=== PATIENT | female | born 1940 | race Caucasian/White ===

== ENCOUNTER 2020-05-07 16:47 | Inpatient (IN) | payer BC ==
[~2020-05-07] VITALS: Ht 160 cm; Wt 69.2 kg
--- NOTE | 2020-05-07 16:55 | Emergency Department Note ---
History of Present Illnes History of Present Illness History of Present Illness This is a 79 year old female presents to the ED for spontaneous onset of non- traumatic R hip pain which radiates down R leg . 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 Onset (how long ago): minute(s) Radiation: Reports extremity Severity: moderate Onset quality: sudden Duration (how long): hour(s) Progression: worsening Chronicity: new Context: Denies trauma/injury Relieving factors: immobilization, rest Exacerbating factors: movement Associated symptoms: Denies denies other symptoms, Denies confusion, Denies chest pain, Denies cough, Denies diaphoresis, Denies fever/chills, Denies headaches, Denies loss of appetite, Denies malaise, Denies nausea/vomiting, Denies rash, Denies seizure, Denies shortness of breath, Denies syncope, Denies weakness, Denies other Treatments prior to arrival: none Past Medical/Family History Physician Review I have reviewed the patient's past medical and family history. Any updates have been documented here. Past Medical History Recent Fever: No Clinical Suspicion of Infectio: No New/Unexplained Change in Ment: No Other Medical History: Multiple Myeloma Breast CA Past Surgical History: None Social History Smoking Cessation: Never Smoker Alcohol Use: None Any Illegal Drug Use: No Review of Systems Review of Systems Constitutional: Reports no symptoms EENTM: Reports no symptoms Cardiovascular: Reports no symptoms Respiratory: Reports no symptoms Gastrointestinal: Reports no symptoms Genitourinary: Reports no symptoms Musculoskeletal: Reports joint pain, Reports muscle pain, Reports muscle stiffness Integumentary: Reports no symptoms Neurological: Reports no symptoms Psychological: Reports no symptoms Endocrine: Reports no symptoms Hematological/Lymphatic: Reports no symptoms Physical Exam Related Data Allergies: Coded Allergies: Sulfa (Sulfonamide Antibiotics) (Verified Allergy, Unknown, HIVES, 05/07/20) cephalexin (Verified Allergy, Unknown, 05/07/20) iodine (Verified Allergy, Unknown, HIVES, 05/07/20) latex (Verified Allergy, Unknown, RASH, 05/07/20) propoxyphene (Verified Allergy, Unknown, HIVES, 05/07/20) sulfamethoxazole (Verified Allergy, Unknown, HIVES, 05/07/20) trimethoprim (Verified Allergy, Unknown, HIVES, 05/07/20) codeine (Verified Adverse Reaction, Unknown, NAUSEA, 05/07/20) hydrocodone (Verified Adverse Reaction, Unknown, NAUSEA/HALLUCINATIONS, 05/07/20) morphine (Verified Adverse Reaction, Unknown, NAUSEA, 05/07/20) promethazine (Verified Adverse Reaction, Unknown, NAUSEA, 05/07/20) Triage Vital Signs Vital Signs Date Time Temp Pulse Resp B/P (MAP) Pulse Ox O2 Delivery O2 Flow Rate FiO2 05/07/20 17:00 99.7 89 18 135/74 100 Room Air 05/07/20 23:25 2.0 Vital signs reviewed: Yes Physical Exam CONSTITUTIONAL Constitutional: Present well-developed, Present well-nourished HENT HENT: Present normocephalic, Present atraumatic, Present oropharynx clear/moist, Present nose normal HENT L/R: Present left ext ear normal, Present right ext ear normal EYES Eyes: Reports PERRL, Reports conjunctivae normal NECK Neck: Present ROM normal PULMONARY Pulmonary: Present effort normal, Present breath sounds normal CARDIOVASCULAR Cardiovascular: Present regular rhythm, Present heart sounds normal, Present capillary refill normal, Present normal rate GASTROINTESTINAL Abdominal: Present soft, Present nontender, Present bowel sounds normal GENITOURINARY Genitourinary: Present exam deferred SKIN Skin: Present warm, Present dry MUSCULOSKELETAL Musculoskeletal: Present tenderness (R hip) NEUROLOGICAL Neurological: Present alert, Present oriented x 3, Present no gross motor or sensory deficits PSYCHOLOGICAL Psychological: Present mood/affect normal, Present judgement normal Results Laboratory Lab results reviewed: Yes Laboratory comments Laboratory Tests Test 05/08/20 00:30 05/07/20 17:38 Creatine Kinase 33 IU/L (29-168) Creatine Kinase MB 0.70 ng/mL (0-5.0) Troponin I 0.032 ng/mL (0-0.300) White Blood Count 11.37 x10e3/uL (4.8-10.8) Red Blood Count 3.17 x10e6/uL (3.6-5.1) Hemoglobin 12.0 g/dL (12.0-16.0) Hematocrit 32.4 % (34.2-44.1) Mean Corpuscular Volume 102.2 fL (81-99) Mean Corpuscular Hemoglobin 37.9 pg (28-32) Mean Corpuscular Hemoglobin Concent 37.0 g/dL (31-35) Red Cell Distribution Width 14.5 % (11.7-14.4) Platelet Count 242 x10e3/uL (140-360) Neutrophils (%) (Auto) 81.4 % (38.7-80.0) Lymphocytes (%) (Auto) 2.7 % (18.0-39.1) Monocytes (%) (Auto) 15.5 % (4.4-11.3) Eosinophils (%) (Auto) 0.0 % (0.0-6.0) Basophils (%) (Auto) 0.1 % (0.0-1.0) Neutrophils # (Auto) 9.3 (2.1-6.9) Lymphocytes # (Auto) 0.3 (1.0-3.2) Monocytes # (Auto) 1.8 (0.2-0.8) Eosinophils # (Auto) 0.0 (0.0-0.4) Basophils # (Auto) 0.0 (0.0-0.1) Absolute Immature Granulocyte (auto 0.03 x10e3/uL (0-0.1) Differential Total Cells Counted 100 Neutrophils % (Manual) 83 % (40-74) Lymphocytes % (Manual) 3 % (19-48) Monocytes % (Manual) 14 % (3.4-9.0) Platelet Estimate Adequate Platelet Morphology Comment Normal Macrocytosis Slight Red Cell Morphology Comment Normal Sodium Level 138 mmol/L (136-145) Potassium Level 3.8 mmol/L (3.5-5.1) Chloride Level 103 mmol/L (98-107) Carbon Dioxide Level 24 mmol/L (22-29) Anion Gap 14.8 mmol/L (8-16) Blood Urea Nitrogen 30 mg/dL (7-26) Creatinine 0.80 mg/dL (0.57-1.11) Estimat Glomerular Filtration Rate > 60 ML/MIN (60-) BUN/Creatinine Ratio 38 (6-25) Glucose Level 127 mg/dL (74-118) Calcium Level 9.4 mg/dL (8.4-10.2) Total Bilirubin 0.3 mg/dL (0.2-1.2) Aspartate Amino Transf (AST/SGOT) 25 IU/L (5-34) Alanine Aminotransferase (ALT/SGPT) 19 IU/L (0-55) Alkaline Phosphatase 50 IU/L (40-150) Total Protein 8.3 g/dL (6.5-8.1) Albumin 3.7 g/dL (3.5-5.0) Globulin 4.6 g/dL (2.3-3.5) Albumin/Globulin Ratio 0.8 (0.8-2.0) Imaging Imaging results reviewed: Yes Impressions [place] [address] Patient Name: HU SOLITARIO MR #: [id number] : 1940 Age/Sex: 79/F Req #: [id number] Adm Physician: Ordered by: RILEY SAUCEDO DO Report #: [id number] Location: ER Room/Bed: Procedure: [id number] CT/CT HIP RIGHT WO Exam Date: 05/07/20 Exam Time: 1820 REPORT STATUS: Signed EXAM: CT of the site without contrast INDICATION: Status post fall with right hip pain. COMPARISON: Same day plain radiographs.. TECHNIQUE: Multidetector CT scanning of the site was performed. Coronal and sagittal multiplanar reformations were obtained. RADIATION DOSE: Total DLP: 210 mGy*cm Estimated effective dose: (DLP x 0.014 x size factor) mSv CTDIvol has been reviewed. It is below the limits set by the Radiation Protocol Committee (RPC). Dose modulation, iterative reconstruction, and/or weight based adjustment of the mA/kV was utilized to reduce the radiation dose to as low as reasonably achievable. FINDINGS: Bones/joints: No acute fracture or dislocation. There are multiple punctate lytic lesions throughout the bones. There are mild degenerative changes of the right hip. Soft Tissues: There are punctate osseous fragments with mild edema of the hamstring muscles. Others: There is right inguinal hernia which contains a short segment of small bowel. No evidence of strangulation. The remainder of the imaged pelvic organs are unremarkable. IMPRESSION: 1. No acute fracture or dislocation. 2. Multiple punctate lytic lesions throughout the bones. Differential diagnoses include multiple myeloma, lymphoma versus metastatic disease. Correlate with clinical history of malignancy and/or complete workup. 3. Punctate osseous fragment with mild edema of the hamstring muscles. These findings likely represent hamstring muscle strain with probable partial-thickness tear. 4. Right inguinal hernia containing short segment of small bowel. No evidence of bowel strangulation or obstruction. Signed by: Anthony Corona MD on 05/07/2020 7:10 PM Dictated By: ANTHONY CORONA MD 09 Transcribed By: KRISSY on 05/07/201909 COPY TO: RILEY SAUCEDO DO~ [place] [address] Patient Name: HU SOLITARIO MR #: [id number] : 1940 Age/Sex: 79/F Req #: [id number] Adm Physician: EDDIE WILLIS MD Ordered by: RILEY SAUCEDO DO Report #: [id number] Location: MED/SURG3 Room/Bed: [facility] Procedure: [id number] CT/CT LUMBAR SPINE WO Exam Date: 05/07/20 Exam Time: 1929 REPORT STATUS: Signed History: Trauma, fall, pain, history of myeloma. Comparison studies: Lumbar spine x-ray 05/07/2020 Technique: Axial images were obtained through the lumbar spine. Coronal and sagittal images reconstructed from the axial data. Dose modulation, iterative reconstruction, and/or weight based adjustment of the mA/kV was utilized to reduce the radiation dose to as low as reasonably achievable. Dose modulation, iterative reconstruction, and/or weight based adjustment of the mA/kV was utilized to reduce the radiation dose to as low as reasonably achievable. Intravenous contrast: None Findings: Number of non-rib bearing vertebral bodies: 5 Alignment: Mild thoracolumbar levocurvature with hyperlordotic lumbar curvature and Grade 2 anterolisthesis of L4 and L5 by approximately 12 mm. Soft tissues and dorsal paraspinal musculature: Postsurgical changes in the lower lumbar soft tissues with moderate symmetric atrophic changes in the dorsal paraspinal musculature. Vertebrae: Demineralized bones with multiple scattered lucent foci consistent with patient's history of multiple myeloma. Postsurgical changes at L4-L5 written there is prior discectomy, posterior instrumented fusion with rods fixated via bilateral pedicle screws without hardware failure or hardware loosening, prior laminectomies and right facetectomy. Fracture along the superior L3 endplate with approximately 25% height loss without retropulsion is age-indeterminate. Chronic-appearing fracture of the superior L2 endplate with approximately 50% height loss centrally without retropulsion. Degenerative changes: T11-T12: Severely degenerated disc. T12-L1: Severely degenerated disc. Minimal retrolisthesis of T12 on L1 with associated disc osteophyte complex and facet arthrosis contribute to moderate bilateral foraminal stenosis (right greater than left.) No significant canal stenosis. L1-L2: Disc osteophyte complex and facet arthrosis result in moderate right and mild left foraminal stenosis. No significant canal stenosis. L2-L3: Disc bulge, thickened ligamentum flavum and facet arthrosis without significant canal or foraminal stenosis. L3-L4: Disc bulge and facet arthrosis result in mild bilateral foraminal stenosis. No gross significant canal stenosis. L4-L5: Changes of prior discectomy with obliterated disc space. Canal has been surgically decompressed. Anterolisthesis of L4 and L5 with associated hypertrophic changes at the facets result in mild left foraminal stenosis. Right foramen has been surgically decompressed. L5-S1: Moderately degenerated disc with vacuum phenomenon. Disc osteophyte complex asymmetric to the left and facet arthrosis result in moderate left foraminal stenosis. No significant canal or right foraminal stenosis. Additional findings: Scattered colonic diverticulosis. Partially imaged right lumbar hernia. IMPRESSION: 1. Demineralized bones with scattered lytic foci consistent with history of myeloma. 2. Age-indeterminate superior L3 endplate fracture, approximately 25% height loss, no retropulsion. 3. Chronic-appearing superior L2 superior endplate fracture. 4. Grade 2 anterolisthesis of L4 on L5 with postsurgical changes at L4-L5 as described. 5. Multilevel degenerative changes as described. Lumbar spine MRI may better evaluate fracture acuity as warranted. Findings discussed with Dr. Saucedo at 9:05 PM on 05/07/2020. Signed by: Dr. Ha Shah M.D. on 05/07/2020 9:12 PM Dictated By: HA SHAH MD 11 Transcribed By: KRISSY on 05/07/202111 COPY TO: RILEY SAUCEDO DO~ Assessment & Plan Medical Decision Making MDM Diff Dx : sciatica, pathologic fx, hip contusion, hip sprain Assessment & Plan Final Impression: (1) Hip pain, right Depart Disposition: ADMITTED Home Meds Reported Medications [Vitamin E ] 10,000 UNITS No Conflict Check, PO DAILY 05/07/20 Cholecalciferol (Vitamin D3) (VITAMIN D3) 1 Gm Powder, 2 GM 05/07/20 Ascorbic Acid (VITAMIN C) 1,000 Mg Tablet 05/07/20 Vitamin A (VITAMIN A) 8,000 Unit Capsule 05/07/20 Fluticasone Propionate (FLUTICASONE PROPIONATE) 16 Gm [place].susp, INH BID PRN for ALLERGY 05/07/20 Zolpidem Tartrate (AMBIEN) 5 Mg Tablet, 2.5 MG PO HS PRN for INSOMNIA, #30 TAB 05/07/20 Amlodipine Besylate (NORVASC) 5 Mg Tab, 5 MG PO DAILY, #30 TAB 05/07/20 Lisinopril (LISINOPRIL) 5 Mg Tablet, 5 MG PO DAILY, #30 TAB 05/07/20 Dexamethasone (DEXAMETHASONE) 4 Mg Tablet, 40 MG PO Q WEEK, TAB 4mg x10 tabs every Saturday05/07/20 Montelukast Sodium (MONTELUKAST SODIUM) 10 Mg Tablet, 10 MG PO DAILY, #30 TAB 05/07/20 Guaifenesin (MUCINEX) 600 Mg Tablet.er, 400 MG PO BID, TAB 05/07/20 Acyclovir (ACYCLOVIR) 200 Mg Capsule, 200 MG PO BID, #30 CAP 05/07/20 Discontinued Reported Medications Teriparatide Inj (FORTEO) 2.4 Ml Syr, 20 MEQ PO DAILY 05/07/20 Ferrous Sulfate (FERROUS SULFATE) 325 Mg Tablet, 325 MG PO DAILY 05/07/20 Loratadine/Pseudoephedrine (CLARITIN-D 24 HOUR TABLET) 1 Each Tab.er.24h, 1 EACH PO DAILY, #30 TAB 05/07/20 RILEY SAUCEDO DO May 07, 2020 16:55
[2020-05-07] MEDS ORDERED: HYDROCODONE/APAP 10MG-325MG TAB PO STA (16:57)
[2020-05-07] MEDS ORDERED: VITAMIN D31 GM (17:19)
[2020-05-07] MEDS ORDERED: VITAMIN A8000 UNIT (17:19)
[2020-05-07] MEDS ORDERED: VITAMIN C1000 MG (17:19)
[2020-05-07] MEDS ORDERED: LISINOPRIL5 MG PO (17:19)
[2020-05-07] MEDS ORDERED: AMBIEN5 MG PO (17:19)
[2020-05-07] MEDS ORDERED: MONTELUKAST SOD10 MG PO (17:19)
[2020-05-07] MEDS ORDERED: MUCINEX600 MG PO (17:19)
[2020-05-07] MEDS ORDERED: VITAMIN E PO (17:19)
[2020-05-07] MEDS ORDERED: CLARITIN-D 241 EACH PO (17:19)
[2020-05-07] MEDS ORDERED: FORTEO2.4 ML PO (17:19)
[2020-05-07] MEDS ORDERED: NORVASC5 MG PO (17:19)
[2020-05-07] MEDS ORDERED: ACYCLOVIR200 MG PO (17:19)
[2020-05-07] MEDS ORDERED: FERROUS SULFAT325 MG PO (17:19)
[2020-05-07] MEDS ORDERED: FLUTICASONE PRO16 GM INH (17:19)
[2020-05-07] MEDS ORDERED: DEXAMETHASONE4 MG PO (17:19)
--- OUTSIDE RECORDS SUMMARY | 2020-05-07 17:22 | XMS REPORT | Clinical Summary ---
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 Name Role Phone Viviane Billings MD PCP Allergies Comments Active Allergy Reactions Severity Noted Date Paper tape ok Adhesive Rash Low 04/13/2019 Cephalexin Rash Low 10/22/2016 hallucination Codeine Other (See 10/22/2016 Comments) Other reaction(s): Hallucinations Hydrocodone-Acetaminophen Nausea Only 10/22/2016 Iodine Rash Low 10/22/2016 Latex Rash Low 04/13/2019 Sick and hallucinations Morphine Other (See 10/22/2016 Comments) [id number] Rash Low 01/2017 h Oil Povidone-Iodine Rash Low 10/22/2016 Promethazine-Dm Nausea And 10/22/2016 Vomiting Unknown Propoxyphene-Acetaminophe Other (See 10/22/2016 n Comments) Lenalidomide Rash Low 04/13/2019 Sulfamethoxazole-Trimetho Hives 10/22/2016 prim Other reaction(s): Other (See Comments) Headaches Sulfated 10/22/2016 Mucopolysaccharides Medications End Date Status Medication Sig Dispensed Refills Start Date Active lisinopril Take 5 mg by 0 (PRINIVIL,ZESTRIL) 5 MG mouth daily. tablet Active amLODIPine (NORVASC) 5 MG Take 5 mg by 0 tablet mouth daily. Active zolpidem (AMBIEN) 2.5 mg Take 2.5 mg 0 half tablet by mouth every night as needed for Insomnia. Active dextromethorphan-guaifene Take 1 tablet 0 sin (MUCINEX DM) 30-600 by mouth as mg per 12 hr tablet needed . Active ferrous sulfate 325 (65 Take 325 mg 0 FE) MG tablet by mouth 2 (two) times daily. Active vitamin A 75842 UNIT Take 10,000 0 capsule Units by mouth daily. Active b complex vitamins tablet Take 1-2 0 tablets by mouth daily. Active ascorbic acid, vitamin C, Take 1,000 mg 0 (VITAMIN C) 1000 MG by mouth 2 tablet (two) times daily. Active vitamin E 400 UNIT Take 400-800 0 capsule Units by mouth daily. Active alpha lipoic acid 300 mg Take 1 0 Cap capsule by mouth daily. Active bromelains 500 mg Tab Take 1 tablet 0 by mouth 2 (two) times daily. Active chromium picolinate 400 Take 800 mcg 0 mcg Tab by mouth 2 (two) times daily. Active echinacea 500 mg Cap Take 1 0 capsule by mouth as needed. Active folic acid (FOLVITE) 800 Take 800 mcg 0 MCG tablet by mouth 2 (two) times daily. Active garlic 1,000 mg Cap Take 1 0 capsule by mouth 2 (two) times daily. Active coenzyme Q10 100 mg Take 100 mg 0 capsule by mouth 2 (two) times daily. Active FLAXSEED, LINSEED, (FLAX Take 2,000 mg 0 SEED OIL) 1,000 mg Cap by mouth daily. Active magnesium gluconate Take 500 mg 0 (MAGONATE) 27.5 mg (500 by mouth 2 mg) tablet (two) times daily. Active milk thistle 200 mg Cap Take 1 0 capsule by mouth daily. Active ANTIOX Take 1 tablet 0 #11/OM3/DHA/EPA/LUT/JANENE by mouth (OCUVITE ADULT 50+ ORAL) daily. Active olive leaf extract 250 mg Take 1 0 Cap capsule by mouth as needed. Active GLUCOSAMINE HCL/CHONDR SESAY Take 100 mg 0 A NA (OSTEO BI-FLEX ORAL) by mouth daily. Active L. acidophilus-L. Take 1 0 rhamnosus (PROBIOTIC) 15 capsule by billion cell Cap mouth daily. Active royal jelly 500 mg Cap Take 1,000 mg 0 by mouth 2 (two) times daily. Active selenium 200 mcg Cap Take 1 0 capsule by mouth daily. Active TURMERIC ROOT EXTRACT Take 538 mg 0 ORAL by mouth daily. Active zinc gluconate 50 mg Take 50 mg by 0 tablet mouth daily. Active azelastine (ASTELIN) 137 1 spray by 0 mcg (0.1 %) nasal spray Nasal route daily Use in each nostril as directed . Active dexAMETHasone (DECADRON) Take 40 mg by 0 4 MG tablet mouth once a week. Active montelukast (SINGULAIR) Take 10 mg by 0 10 mg tablet mouth nightly. Active BIOTIN ORAL Take by 0 mouth. Active UNKNOWN cbd oil dialy 0 . Active Problems Problem Noted Date Compression fracture of thoracic vertebra 11/09/2016 Social History Date Tobacco Use Types Packs/Day Years Used Never Smoker Smokeless Tobacco: Never Used Drinks/Week oz/Week Comments Alcohol Use No Sex Assigned at Date Recorded Not on file Last Filed Vital Signs Not on file Plan of Treatment Health Maintenance Due Date Last Done Comments INFLUENZA VACCINE (#1) 2020 03/11/2017, 03/06/2016, 03/31/2015, Additional history exists PNEUMOCOCCAL 65+ YRS Completed 01/26/2016, 06/30/2014, 03/30/2009 Implants Device Identifier Shelf Expiration Date Model / Serial / L ot Implanted Type Area Manufactur er 01/14/2019 C01A / / [id number] Cement Bone [employer] Hv-R C01a - Cement/Yash N/A: Spine [employer]: [id number] ler/Adhesi Thoracic SPINAL Implanted: Qty: 1 on 11/09/2016 by pepe Zane PrepAmarjit Rajan MD at [facility] 04/26/2018 C01B / / [id number] Cement Ktmx Kyphx Hv-R C01b - Cement/Yash N/A: Spine [employer]: [id number] ler/Adhesi Thoracic SPINAL Implanted: Qty: 1 on 11/09/2016 by pepe Wannyi Amarjit Valdez MD at [facility] Results Not on fileafter 05/07/2019 Insurance Type Payer Benefit Subscriber ID Effective Phone Address Plan / Dates Group PPO BLUE CROSS/BLUE SHIELD BCBS OS [id number] 2016-P [address]O/EP resent [id number] [place] [address] [id number]
--- OUTSIDE RECORDS SUMMARY | 2020-05-07 17:22 | XMS REPORT | Continuity of Care Document ---
Author Author [facility] t Organization [facility] Address 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, Elizabeth Motley Attphys [phone] HERB, IBAN Attphys Unavailable MIKAYLA MANCILLA Attphys Unavailable MIKAYLA MANCILLA Admphys Unavailable Problems Condition Name Condition Details Condition Category Status Onset Date Resolution Date Last Treatment Date Treating Clinician Comments Source Compression fracture of thoracic vertebra Compression fracture of thoracic vertebra Disease Active 2016-11-09 00:00:00 [facility] Allergies, Adverse Reactions, Alerts Allergy Name Allergy Type Status Severity Reaction(s) Onset Date Inacti ve Date Treating Clinician Comments Source Adhesive Drug Allergy Active Rash 2019-04-13 00:00:00 Paper tape ok [facility] Latex Drug Allergy Active Rash 2019-04-13 00:00:00 [facility] Lenalidomide Drug Allergy Active Rash 2019-04-13 00:00:00 [facility] Cephalexin Propensity to adverse reactions Active Rash 10-22 00:00:00 [facility] Codeine Propensity to adverse reactions Active Othe r (See Comments) 2016-10-22 00:00:00 hallucination [facility] Hydrocodone-Acetaminophen Propensity to adverse reactions Active Nausea Only 2016-10-22 00:00:00 Other reaction(s): Hallucina tions [facility] Iodine Propensity to adverse reactions Active Rash 2016-10-22 00 :00:00 [facility] Morphine Propensity to adverse reactions Active Othe r (See Comments) 2016-10-22 00:00:00 Sick and hallucinations [facility] Pktmt8-[id number]-Fish Oil Propensity to adverse reactions Active Rash 2016-10-22 00:00:00 [facility] Povidone-Iodine Propensity to adverse reactions Active Rash 2016-10-22 00:00:00 [facility] Promethazine-Dm Propensity to adverse reactions Active Nausea And Vomiting 2016-10-22 00:00:00 [facility] Propoxyphene-Acetaminophen Propensity to adverse reactions Active Other (See Comments) 2016-10-22 00:00:00 Unknown [facility] Sulfamethoxazole-Trimethoprim Propensity to adverse reactions Active Hives 2016-10-22 00:00:00 [facility] Sulfated Mucopolysaccharides Propensity to adverse reactions Active 2016-10-22 00:00:00 Other reaction(s): Other (Se e Comments)Headaches [facility] Social History Social Habit Start Date Stop Date Quantity Comments Source Sex Assigned At [facility] Tobacco use and exposure 2019-04-17 00:00:00 2019-04-17 00:00:00 Maira hogan used [facility] Alcohol intake 2019-04-17 00:00:00 2019-04-17 00:00:00 Current non-drinker of alcohol (finding) [facility] Smoking Status Start Date Stop Date Source Never smoker [facility] Medications Ordered Medication Name Filled Medication Name Start Date Stop Da te Current Medication? Ordering Clinician Indication Dosage Frequency Signature (SIG) Comments Components Source lisinopril (PRINIVIL,ZESTRIL) 5 MG tablet 2019-04-17 12:05:10 Yes 5mg QD Take 5 mg by mouth daily. [facility] amLODIPine (NORVASC) 5 MG tablet 2019-04-17 12:05:10 Yes 5mg QD Take 5 mg by mouth daily. [facility] zolpidem (AMBIEN) 2.5 mg half tablet 2019-04-17 12:05:10 Ye s 2.5mg Take 2.5 mg by mouth every night as needed for Insomnia. [facility] dextromethorphan-guaifenesin (MUCINEX DM) 30-600 mg per 12 h r tablet 2019-04-17 12:05:10 Yes 1{tbl} Take 1 tablet by m outh as needed . [facility] ferrous sulfate 325 (65 FE) MG tablet 2019-04-17 12:05:10 Yes 325mg Q.5D Take 325 mg by mouth 2 (two) times daily. [facility] vitamin A 33590 UNIT capsule 2019-04-17 12:05:10 Yes 25618R QD Take 10,000 Units by mouth daily. [facility] b complex vitamins tablet 2019-04-17 12:05:10 Yes 1{tbl} QD Take 1-2 tablets by mouth daily. [facility] ascorbic acid, vitamin C, (VITAMIN C) 1000 MG tablet 2 12:05:10 Yes 1000mg Q.5D Take 1,000 mg by mouth 2 (two) times diana ly. [facility] vitamin E 400 UNIT capsule 2019-04-17 12:05:10 Yes 400U QD Take 400-800 Units by mouth daily. [facility] alpha lipoic acid 300 mg Cap 2019-04-17 12:05:10 Yes 1{capsule} QD Take 1 capsule by mouth daily. [facility] bromelains 500 mg Tab 2019-04-17 12:05:10 Yes 1{tbl} Q.5D Take 1 tablet by mouth 2 (two) times daily. [facility] chromium picolinate 400 mcg Tab 2019-04-17 12:05:10 Yes 800ug Q.5D Take 800 mcg by mouth 2 (two) times daily. I [facility] echinacea 500 mg Cap 2019-04-17 12:05:10 Yes 1{capsule} Take 1 capsule by mouth as needed. [facility] folic acid (FOLVITE) 800 MCG tablet 2019-04-17 12:05:10 Yes 800ug Q.5D Take 800 mcg by mouth 2 (two) times daily. [facility] garlic 1,000 mg Cap 2019-04-17 12:05:10 Yes 1{capsule} Q.5D Take 1 capsule by mouth 2 (two) times daily. I [facility] coenzyme Q10 100 mg capsule 2019-04-17 12:05:10 Yes 100mg Q.5D Take 100 mg by mouth 2 (two) times daily. [facility] FLAXSEED, LINSEED, (FLAX SEED OIL) 1,000 mg Cap 2019-04-17 12:05 :10 Yes 2000mg QD Take 2,000 mg by mouth daily. [facility] magnesium gluconate (MAGONATE) 27.5 mg (500 mg) tablet 2019-04-17 12:05:10 Yes 500mg Q.5D Take 500 mg by mouth 2 (two) times daily . [facility] milk thistle 200 mg Cap 2019-04-17 12:05:10 Yes 1{capsule} QD Take 1 capsule by mouth daily. [facility] ANTIOX #11/OM3/DHA/EPA/LUT/JANENE (OCUVITE ADULT 50+ ORAL) 2019-04-17 12:05:10 Yes 1{tbl} QD Take 1 tablet by mouth daily. [facility] olive leaf extract 250 mg Cap 2019-04-17 12:05:10 Yes 1{capsule} Take 1 capsule by mouth as needed. [facility] GLUCOSAMINE HCL/CHONDR SESAY A NA (OSTEO BI-FLEX ORAL) 2018-06 12:05:10 Yes 100mg QD Take 100 mg by mouth daily. [facility] L. acidophilus-L. rhamnosus (PROBIOTIC) 15 billion cell Cap 2019-04-17 12:05:10 Yes 1{capsule} QD Take 1 capsule by mouth d aily. [facility] royal jelly 500 mg Cap 2019-04-17 12:05:10 Yes 1000mg Q.5D Take 1,000 mg by mouth 2 (two) times daily. [facility] selenium 200 mcg Cap 2019-04-17 12:05:10 Yes 1{capsule} QD Take 1 capsule by mouth daily. [facility] TURMERIC ROOT EXTRACT ORAL 2019-04-17 12:05:10 Yes 538mg QD Take 538 mg by mouth daily. [facility] zinc gluconate 50 mg tablet 2019-04-17 12:05:10 Yes 50mg QD Take 50 mg by mouth daily. [facility] azelastine (ASTELIN) 137 mcg (0.1 %) nasal spray 2019-04-17 12:05:10 Yes 1{spray} QD 1 spray by Nasal route daily Use in each nostri l as directed . [facility] dexAMETHasone (DECADRON) 4 MG tablet 2019-04-17 12:05:10 Ye s 40mg Q7D Take 40 mg by mouth once a week. [facility] montelukast (SINGULAIR) 10 mg tablet 2019-04-17 12:05:10 Ye s 10mg QD Take 10 mg by mouth nightly. [facility] BIOTIN ORAL 2019-04-17 12:05:10 Yes Take by mouth. [facility] UNKNOWN 2019-04-17 12:05:10 Yes cbd oil dial y . [facility] Procedures This patient has no known procedures. Plan of Care Planned Activity Planned Date Details Comments Source Future Scheduled Test 2020-02-16 00:00:00 INFLUENZA VACCINE (#1) [code = INFLUENZA VACCINE (#1)] [facility] Encounters Start Date/Time End Date/Time Encounter Type Admission Type Attendi [facility] Care Department Encounter ID Source 2020-04-28 09:32:34 2020-04-28 11:22:25 Office Visit Osvaldo Mancilla [facility] [place] [id number] 2020-04-22 13:27:19 2020-04-22 14:46:21 Office Visit Osvaldo Mancilla [facility] [place] [id number] 2020-04-12 14:36:12 2020-04-12 17:51:46 Office Visit Viviane Haywood [facility] [id number] 2020-03-22 12:28:02 2020-03-22 15:09:37 Office Visit Osvaldo Mancilla [facility] [place] [id number] 2020-02-23 12:14:31 2020-02-23 13:15:28 Office Visit Osvaldo Mancilla [facility] [place] [id number] 2020-01-26 12:38:56 2020-01-26 13:50:07 Office Visit Osvaldo Mancilla [facility] [place] [id number] 2019-11-18 11:27:21 2019-11-18 11:57:21 Office Visit Tiesha Carlson [facility] [id number] 2019-10-01 12:15:43 2019-10-01 14:28:40 Office Visit Osvaldo Mancilla [facility] [place] [id number] 2019-04-23 13:46:25 2019-04-23 14:46:37 Office Visit Osvaldo Mancilla [facility] [place] [id number] 2019-02-26 12:29:17 2019-02-26 14:03:53 Office Visit Osvaldo Mancilla [facility] [place] [id number] 2019-02-11 08:34:37 2019-02-11 15:13:28 Office Visit Viviane Haywood [facility] [id number] 2019-01-09 09:33:41 2019-01-09 10:03:41 Office Visit Viviane Haywood [facility] [id number] Results Test Description Test Time Test Comments Results Result Comments Source MR, SPINE, LUMBAR, WITHOUT / WITH IV CONTRAST 2018-11-21 11:22:0 0 FINAL REPORT MR, SPINE, LUMBAR, WITHOUT / WITH IV CONTRAST HISTORY: Lumbar disc herniation, multiple myeloma COMPARISON: Lumbar and thoracic spine MRI 09/28/2016 TECHNIQUE:Multiplanar, multisequence MRI of the lumbar spine was performed without and with intravenous contrast. 5.5 mL of Gadavist were administered. Motion and noise artifacts obscure some details. DISCUSSION:Posts urgical changes related to posterior fusion at L4-L5 with laminectomy are present. Associated hardware susceptibility artifacts obscure some details. Number of non-rib bearing lumbar vertebral bodies: 5.Alignment: Normal lordosis. Mild thoracolumbar levoscoliosis is present. Vertebrae: Moderate compression fractures of the T7-T9 vertebral bodies are likely chronic. There is no significant fracture retropulsion. Thoracic kyphosis is accentuated at these levels. There are apparent vertebroplasty changes at T9. Enhancing, T1/T2 hypointensity along the L1 inferior endplate is new. There is associated subtle compression deformity of the L1 inferior endplate. Mild compression deformities of the L2 and L3 vertebral bodies are also likely chronic. There is no significant fracture retropulsion. New mild compression deformity the L4 vertebral body is associated with mild superior endplate STIR hyperintensity. There is no significant fracture retropulsion. Diffuse, heterogeneous, low T2 marrow signal is otherwise grossly unchanged. Conus medullaris: Normal, ends at approximately L1-L2.Cauda equina: No masses or arachnoiditis.Posterior paraspinal muscles: There is paraspinal muscle atrophy at the lumbosacral junction. Posterior incision signal changes are noted.Soft tissues: Left renal parapelvic cysts are present. A few additional small nonenhancing lesions in both kidneys also may be cysts. Multilevel advanced disc degeneration is most prominent at T11-T12, T12-L1, and L4-L5. T10-T11: Mild canal stenosis due to disc bulge and ligamentum flavum thickening. No significant foraminal stenosis. T11-T12: No significant canal or foraminal stenosis. T12-L1: Moderate right foraminal stenosis due to disc bulge and facet arthrosis. No significant canal or left foraminal stenosis. L1-L2: Mild right foraminal stenosis due to disc bulge and facet arthrosis. No significant canal or left foraminal stenosis. L2- L3: Mild bilateral foraminal stenoses due to disc bulge and facet arthrosis. No significant canal stenosis. L3-L4: Mild to moderate bilateral foraminal stenoses due to disc bulge and facet arthrosis. No significant canal stenosis. L4-L5: Fusion/laminectomy level. Grade 2 anterolisthesis of L4 on L5. Moderate canal stenosis, just above the laminectomy level, due to uncovered disc bulge and ligamentum flavum thickening. The neural foramina are obscured by susceptibility artifact. There is at least moderate bilateral foraminal stenoses due to uncovered disc bulge and facet arthrosis. L5-S1: Suspected mild to moderate right and moderate to severe left foraminal stenoses due to disc bulge and facet arthrosis. No significant canal stenosis. IMPRESSION:1.New enhancing, T1/T2 hypointensity along the L1 inferior endplate could be due to mild acute or subacute inferior endplate compression fracture. There is no significant retropulsion.2.New, mild L4 vertebral compression fracture is age-indeterminate (given local susceptibility artifact). No significant retropulsion.3.Grossly unchanged, underlying diffuse, heterogeneous low T2 marrow signal could be due to red marrow conversion or other diffuse marrow process.4.A few additional mild to moderate chronic thoracic and lumbar vertebral compression fractures without significant retropulsion. 5.Multilevel advanced disc degeneration with fusion/laminectomy changes at L4-L5. Grade 2 anterolisthesis of L4 on L5.6.Moderate degenerative canal stenosis at L4-L5. Multilevel bilateral degenerative foraminal stenoses as described above. Signed: [place], [place] MDReport Verified Date/Time: 11/21/2018 11:22:23 Reading Location: [facility] Reading Room [address] [place] [address] -CREATININE 2018-11-19 15:34:00 Test Item POC-CREATININE (BEDIXON) (test code = 1859) 0.7 mg/dL 0.6-1.3 [address]ED [address] [facility] [address] POC-EGFR (BEAKER) (test code = 1860) 81 mL/min/1.73M2 BONE MARROW [id number] 16:08:00Bone Marrow Pathology Report Case: [id number] Authorizing Provider: Osvaldo Mancilla MD Collected: 10/06/2018 0935 Ordering Location: [facility] Radiology Main Received: 10/06/2018 0919 Pathologist: Filiberto Ivory MD Specimens: A) - Iliac Crest, Right B) - C) - Karyotype is reported to be 46,XX[20].Expanded multiple myeloma FISH panel demonstrates the following results with the following probes:Gains (5,9,15) DETECTEDDup(1q) Not detectedDel(1p) Not detectedDel(13q) Not detectedDel(17p)(TP53) Not detectedIGH rearrangement Not detectedExpanded MDS FISH panel was erroneously performed at the reference laboratory. The results of this study are nevertheless is negative and the results are scanned and attached.Addendum electronically signed by Filiberto Ivory MD on 10/17/2018 at 4:08 PMBONE MARROW ASPIRATE, CLOT, AND DECALCIFIED BIOPSY:WELL DI FFERENTIATED KAPPA RESTRICTED PLASMA CELL NEOPLASM (24% BY MANUAL COUNT). RESIDU AL TRILINEAGE HEMATOPOIESIS IS PRESENT.CYTOGENETIC STUDIES PENDING, AN ADDENDUM WILL FOLLOW.PERIPHERAL BLOOD:MACROCYTIC ANEMIA.NO CIRCULATING PLASMA CELLS. Signing Pathologist Direct Phone Line: [phone] signed by Filiberto Cardoza MD on 10/08/2018 at 1:31 PM 91087; 12601; 32776 x 2; 57476 ; 43840 x2, 88020, 11273 [id number] gammopathy of undetermined significance.Jose Guadalupe ne marrow clot and bone marrow biopsy and one aspirate clotAll parts labelled wi th the patients name, medical record number, and date of :Part A: Received are a number of unstained glass slides (aspirate smears). The slides are stained using the Mccullough-Giemsa method. Part B. Received labeled "marrow" and consists of a 0.8 x 0.6 x 0.5 cm red-brown blood clot. The specimen is filtered and submi tted in toto in cassette B1.Part C. Received also labeled "marrow" and consists of a 1.0 x 0.2 cm red-brown cylindrical core. The specimen is submitted in casse tte C following adequate decalcification. /ewBANNER CARDON CHILDREN'S MEDICAL CENTERE MARROW ASPIRATE:QUALITY:Aspi rate- AdequateTouch imprint- AdequateMARROW DIFFERENTIAL COUNT: Number of cells counted: 5001% Blasts 1% Promyelocytes 18% Myelocytes/Metamyelocytes 26% Bands/ Segmented granulocytes 3% Eosinophils and precursors 1% Basophils and precursors 14% Erythroid precursors 9% Lymphocytes 3% Pksovzoqr61% Plasma cellsBlasts: Not increased Erythropoiesis: Present with complete maturationMyelopoiesis: pr esent with complete maturation Megakaryocytes: present and unremarkableOther: mature-appearing plasma cells with occasional binucleate forms Stainable iron is identified on the aspirate smear and appears to be increased. Ring sideroblasts are not identified. BONE MARROW BIOPSY: Biopsy- Adequate. Clot- Inadequate with no marrow material available for evaluation.Mildly hypercellular for age (50-60%). Cellular composition ernesto lar to aspirate smears and touch imprints. Trilineage hematopoiesis is present w ith maturation. Megakaryocytes are slightly decreased and appear unremarkable. A n increased number of predominantly mature-appearing plasma cells are identified . Immunostains performed on the marrow biopsy reveal increased number of monoty pic, [place]-restricted,CD138+,CD56 + plasma cells (20-30%). This population is ne gative for CD20, cyclin D1, and lambda light chain. CD20 highlights scattered B cells, no aggregates. Congo red special stain performed on the core biopsy is n egative.Stainable iron is not identified on the clot section by the Perls iron s pecial stain, however limited marrow is present on the clot section. PERIPHERAL BLOOD:Red cells: Macrocytic anemia. No significant Rouleaux formation. White ce lls: No circulating blasts or plasma cells. Platelets: No signficant morphologi c abnormalities.The interpretation of this case included the use of immunohistoc hemistry or special stains.BLOCK B1- PERLS IRONBLOCK C1: CD138, CD56, KAPPA, HICKS BDA, CD20, CONGO RED, Cyclin U1Gkogrmlwfmkcthjanxhe technical testing was perfor med at [facility], Pathology Laboratory where it was preston szymanskishireen and its performance characteristics were determined. It has not been cleare d or approved by the U.S. Food and Drug Administration. The FDA has determined t hat such clearance or approval is not necessary. The test is used for clinical p urposes. It should not be regarded as investigational or for research. This labo ratory is certified under the Clinical Laboratory Improvement Amendments of 1988 (CLIA-88) as qualified to perform high complexity clinical laboratory testing.[facility], Department of Pathology, [address] [place] [id number], [facility] o f [facility], [address] [place] [address], YVJM CYTOMETRY [id number] 14:05:00* Test Item Value Reference Range Interpretation Comments FLOW CYTOMETRY RESULT POINTER (YONG) (test code = 2758) See Se parate Report FLOW CYTOMETRY AP CASE # (YONG) (test code = 2759) [id number] FLOW [id number] 12:48:00Flow Cytometry Report Case: [id number] Authorizing Provider: Osvaldo Mancilla MD Collected: 10/06/2018 0935 Ordering Location: [facility] Radiology Main Received: 10/06/2018 0906 Pathologist: Filiberto Ivory MD Specimen: Other BONE MARROW, RIGHT ILIAC CREST, FLOW CYTOMETRY:KAPPA RESTRICTED, MONOTYPIC PLASMA CELL POPULATION (3.7% OF TOTAL CELLS)CORRELATION WITH MORPHOLOGIC FINDINGS REQUIRED TO DEFINITIVELY ASSESS THE PERCENTAGE OF PLASMA CELLS. See concurrent bone marrow study ([id number] monoclonal gammopathyBONE MARROW CD8, surface-Palma Sola, CD56, surface-Lambda, CD5, CD19, CD10, CD3, CD20, CD4, CD45, CD14, CD13, CD33, CD117, CD34, cKappa, cLambda, CD38, [id number] Viability: 93.8% Number of Events Acquired: [id number] plasma cell population identified (3.7 of cellularity)POSITIVE: CD45 (dim), CD138, CD38, CD56, [place] light chainNEGATIVE: CD19, CD20, lambda In addition, the following populations are identified: Blasts: the dim CD45+ CD34+ blasts comprise 0.3% of total cells. The majority of these cells express CD13 and CD33 (myeloblasts). Lymphocytes: Bright CD45+ lymphocytes comprise 4.7% of total cells. T cells show a CD4:CD8 ratio of 2.2 and normal expression of the garcia T cell antigens CD3 and CD5. B cells are polytypic with a kappa:lambda ratio of 1.2 and include few CD10+ B cells with the immunophenotypic features of hematogones. Myeloid/monocytic populations: As identified by CD45 and light scatter characteristics, granulocytes comprise the majority of cells analyzed, and monocytes comprise 2.1% of total cells. Plasma cells: 3.7% CD138 positive plasma cells are noted with immunophenotypic features as described above. The remaining events analyzed represent nonviable cells, non-hematolymphoid cells, and debris.These tests were developed and their performance characteristics determined by [facility].They have not been cleared or approved by the U.S. Food and Drug Administration. The FDA has determined that such clearance or approval is not necessary. It should not be regarded as investigational or for research.This laboratory is certified under the Clinical Laboratory Improvement Amendments of 1988 ("CLIA") as qualified to perform high- complexity clinical testing.[facility], Department of Path ology, [address] [place] [address], [facility], [facility], [address] [place] [address], RSKT MARROW PROCESS.2018-10-06 10:15:00* Test Item Value Reference Range Interpretation Comments ANATOMIC CASE# PAYAL) (test code = 2470) [id number] ORDERED BY DOCTOR# (BEAKER) (test code = 2457) Udden PERFORMED BY DOCTOR# (BEAKER) (test code = 2458) Yesika CLOT RECEIVED? (BEAKER) (test code = 2459) Yes BIOPSY RECEIVED? (BEAKER) (test code = 2460) Yes CULTURE RECEIVED? (BEAKER) (test code = 2464) No FLOW RECEIVED? (BEAKER) (test code = 2461) Yes CYTOGENICS? (BEAKER) (test code = 2462) Yes MOLECULAR GENETICS? (BEAKER) (test code = 2463) Yes Good collection by Dr Jarrett.Slides looks great(Floresita)CT, BIOPSY, BONE MARROW 2018-10-06 09:55:00Reason for Exam:->monoclonal gammopathy of unknown significance mgusFINAL REPORT CT guided bone marrow aspiration and biopsy History: monoclonal gammopathy of unknown significance mgus Modality: CT, CT fluoroscopy Anesthesia: 1% lidocaine local Approach: Right dorsal percutaneous Consent: Informed written consent was obtained from the patient. Sedation: Moderate sedation was administered. 1 mg of Versed and 50 mcg of fentanyl IV was used for moderate sedation monitored under my direction. Total intraservice time of sedation was 20 minutes. The patient's vital signs were monitored throughout the procedure and recorded in the patient's medical record by the nurse. Technique: The patient was placed in the prone position in the CT scanner. A safe window to the right iliac bone was localized using CT and CT fluoroscopy. This exam was performed according to our departmental dose optimization program which includes automated exposure control, adjustment of the mA and/or kV according to patient size and/or use of iterative reconstructive technique. After the usual sterile preparation and application of local anesthesia, using a right dorsal percutaneous approach, a 10 cm 12 gauge [place] bone biopsy needle was advanced into the right iliac bone using CT guidance. Approximately 10 cc of marrow aspirates were obtained. Subsequently, a 2 cm core biopsy sample was obtained. The samples were collected by cytopathology for further analysis. Disposition: The patient tolerated the procedure well, without immediate complications. The patient left CT in stable condition. Impression: 1. Technically successful CT guided bone marrow aspi ration and biopsy Signed: Vikas Jarrett MDReport Verified Date/Time: 10/06/2018 09 :55:08 Reading Location: [facility] [id number] Ortho Consult Reading Room [facility] signed by: VIKAS JARRETT M.D. on 10/06/2018 09:55 AM [id number] 07:07:00* Test Item Value Reference Range Interpretation Comments PARTIAL THROMBOPLASTIN TIME (BEAKER) (test code = 760) 29.5 seconds 22.5-36.0 PROTHROMBIN TIME/[id number] 07:06:00* Test Item Value Reference Range Interpretation Comments PROTIME (BEAKER) (test code = 759) 14.0 seconds 11.7-14.7 INR (BEAKER) (test code = 370) 1.1 <=5.9 RECOMMENDED COUMADIN/WARFARIN INR THERAPY RANGESSTANDARD DOSE: 2.0 - 3.0 Inclu sarah: PROPHYLAXIS for venous thrombosis, systemic embolization; TREATMENT for linda ous thrombosis and/or pulmonary embolus.HIGH RISK: Target INR is 2.5-3.5 for pat ients with mechanical heart valves.CBC W/PLT COUNT & AUTO [id number] 07:02:00* Test Item Value Reference Range Interpretation Comments WHITE BLOOD CELL COUNT (BEAKER) (test code = 775) 4.2 K/ L 3.5- 10.5 RED BLOOD CELL COUNT (BEAKER) (test code = 761) 3.58 M/ L 3.93-5 .22 L HEMOGLOBIN (BEAKER) (test code = 410) 12.1 GM/DL 11.2-15.7 HEMATOCRIT (BEAKER) (test code = 411) 36.7 % 34.1-44.9 MEAN CORPUSCULAR VOLUME (BEAKER) (test code = 753) 102.5 fL 79. 4-94.8 H MEAN CORPUSCULAR HEMOGLOBIN (BEAKER) (test code = 751) 33.8 pg 25.6-32.2 H MEAN CORPUSCULAR HEMOGLOBIN CONC (BEAKER) (test code = 752) 33.0 GM/DL 32.2-35.5 RED CELL DISTRIBUTION WIDTH (BEAKER) (test code = 412) 13.6 % 11.7-14.4 PLATELET COUNT (BEAKER) (test code = 756) 189 K/CU MM 150-450 MEAN PLATELET VOLUME (BEAKER) (test code = 754) 9.8 fL 9.4-12 .3 NUCLEATED RED BLOOD CELLS (BEAKER) (test code = 413) 0 /100 WBC 0 -0 NEUTROPHILS RELATIVE PERCENT (BEAKER) (test code = 429) 67 % LYMPHOCYTES RELATIVE PERCENT (BEAKER) (test code = 430) 19 % MONOCYTES RELATIVE PERCENT (BEAKER) (test code = 431) 10 % EOSINOPHILS RELATIVE PERCENT (BEAKER) (test code = 432) 4 % BASOPHILS RELATIVE PERCENT (BEAKER) (test code = 437) 0 % NEUTROPHILS ABSOLUTE COUNT (BEAKER) (test code = 670) 2.84 K/ L 1.56-6.13 LYMPHOCYTES ABSOLUTE COUNT (BEAKER) (test code = 414) 0.81 K/ L 1.18-3.74 L MONOCYTES ABSOLUTE COUNT (BEAKER) (test code = 415) 0.41 K/ L 0. 24-0.36 H EOSINOPHILS ABSOLUTE COUNT (BEAKER) (test code = 416) 0.15 K/ L 0.04-0.36 BASOPHILS ABSOLUTE COUNT (BEAKER) (test code = 417) 0.01 K/ L 0. 01-0.08 IMMATURE GRANULOCYTES-RELATIVE PERCENT (BEAKER) (test code = 2801) 0 % 0-1
[2020-05-07] MEDS ORDERED: HYDROMORPHONE 1MG/1ML INJ IV STA (17:25)
[2020-05-07] MEDS ORDERED: ONDANSETRON HCL INJ 2MG/ML 2ML 2 MG/ML VIAL IV STA (17:25)
[2020-05-07 18:23] LABS: BASOPHILS % 0.1 % (0.0-1.0); HEMATOCRIT 32.4 % (34.2-44.1); LYMPHOCYTES # (AUTO) 0.3 (1.0-3.2); LYMPHOCYTES % 2.7 % (18.0-39.1); MEAN CORPUSCULAR HEMOGLOBIN 37.9 pg (28-32); MEAN CORPUSCULAR VOLUME 102.2 fL (81-99); MONOCYTES # (AUTO) 1.8 (0.2-0.8); MONOCYTES % 15.5 % (4.4-11.3); NEUTROPHILS # (AUTO) 9.3 (2.1-6.9); NEUTROPHILS % 81.4 % (38.7-80.0); PLATELET COUNT 242 x10e3/uL (140-360); RED BLOOD COUNT 3.17 x10e6/uL (3.6-5.1); RED CELL DISTRIBUTION WIDTH 14.5 % (11.7-14.4)
[2020-05-07 18:34] LABS: ALANINE AMINOTRANSFERASE 19 IU/L (0-55); ALBUMIN 3.7 g/dL (3.5-5.0); ALBUMIN/GLOBULIN RATIO 0.8 (0.8-2.0); ALKALINE PHOSPHATASE 50 IU/L (40-150); ANION GAP 14.8 mmol/L (8-16); BLOOD UREA NITROGEN 30 mg/dL (7-26); BUN/CREATININE RATIO 38 (6-25); CALCIUM 9.4 mg/dL (8.4-10.2); CARBON DIOXIDE 24 mmol/L (22-29); CHLORIDE 103 mmol/L (98-107); EST GLOMERULAR FILTRATION RATE > 60 ML/MIN (60-); GLUCOSE 127 mg/dL (74-118); POTASSIUM 3.8 mmol/L (3.5-5.1); SODIUM 138 mmol/L (136-145)
--- NOTE | 2020-05-07 18:54 | Diagnostic Imaging Report ---
Lumbar Spine Radiographs: 3 views HISTORY: Lower back pain status post fall. COMPARISON: None available. DISCUSSION: The bones are diffusely demineralized. Alignment: There is grade 2 anterolisthesis of L4 on L5. Status post L4-L5 posterior spinal fusion with interbody cage device. Vertebral bodies: Compression fractures of T7 and T8 of indeterminate age. There is chronic compression fracture of T9 vertebral body status post vertebroplasty with focal kyphosis. Intervertebral disc spaces: Multilevel degenerative disc disease. Prevertebral soft tissues: Atherosclerotic calcification of the abdominal aorta. Others: The sacroiliac joints are symmetric. Partially imaged abdomen demonstrates normal bowel gas pattern. IMPRESSION: 1. T7 and T8 compression fractures of indeterminate age. Correlate with point tenderness. 2. Chronic compression fracture of T9 vertebral body. 3. Lumbar spondylosis with multilevel degenerative disease. 4. L4-5 posterior spinal fusion with grade 2 anterolisthesis of L4 on L5. Signed by: Ghanshyam Landry MD on 05/07/2020 6:50 PM
--- NOTE | 2020-05-07 18:58 | Diagnostic Imaging Report ---
X-ray AP view of the pelvis. 2 views of the right hip. HISTORY: Pain. COMPARISON: None available. FINDINGS: Bone/joints: No acute fracture or dislocation. There are multiple punctate lytic lesions throughout the bones. Soft tissues: Multiple phlebolith projecting over the pelvis. There are granulomas projecting over the left gluteal soft tissues. Others: The sacroiliac joints are symmetric. No pubic symphyseal widening. IMPRESSION: 1. No acute fracture or dislocation. 2. Multiple punctate lytic lesions throughout the bones. Differential diagnoses include multiple myeloma, lymphoma versus metastatic disease. Correlate with clinical history of malignancy and/or complete workup. Signed by: Ghanshyam Landry MD on 05/07/2020 6:55 PM
[2020-05-07] MEDS ORDERED: ONDANSETRON HCL INJ 2MG/ML 2ML 2 MG/ML VIAL IV PRN ×2 (19:00→20:15)
[2020-05-07] MEDS ORDERED: HYDROMORPHONE 1MG/1ML INJ IV PRN (19:00)
--- NOTE | 2020-05-07 19:13 | Diagnostic Imaging Report ---
EXAM: CT of the site without contrast INDICATION: Status post fall with right hip pain. COMPARISON: Same day plain radiographs.. TECHNIQUE: Multidetector CT scanning of the site was performed. Coronal and sagittal multiplanar reformations were obtained. RADIATION DOSE: Total DLP: 210 mGy*cm Estimated effective dose: (DLP x 0.014 x size factor) mSv CTDIvol has been reviewed. It is below the limits set by the Radiation Protocol Committee (RPC). Dose modulation, iterative reconstruction, and/or weight based adjustment of the mA/kV was utilized to reduce the radiation dose to as low as reasonably achievable. FINDINGS: Bones/joints: No acute fracture or dislocation. There are multiple punctate lytic lesions throughout the bones. There are mild degenerative changes of the right hip. Soft Tissues: There are punctate osseous fragments with mild edema of the hamstring muscles. Others: There is right inguinal hernia which contains a short segment of small bowel. No evidence of strangulation. The remainder of the imaged pelvic organs are unremarkable. IMPRESSION: 1. No acute fracture or dislocation. 2. Multiple punctate lytic lesions throughout the bones. Differential diagnoses include multiple myeloma, lymphoma versus metastatic disease. Correlate with clinical history of malignancy and/or complete workup. 3. Punctate osseous fragment with mild edema of the hamstring muscles. These findings likely represent hamstring muscle strain with probable partial-thickness tear. 4. Right inguinal hernia containing short segment of small bowel. No evidence of bowel strangulation or obstruction. Signed by: Ghanshyam Landry MD on 05/07/2020 7:10 PM
--- OUTSIDE RECORDS SUMMARY | 2020-05-07 19:36 | XMS REPORT | Clinical Summary ---
Author Author [facility] Address Unknown Phone Unavailable Care Team Providers Care Statistical Clerk Name Role Phone Viviane Billings MD PCP Allergies Comments Active Allergy Reactions Severity Noted Date Paper tape ok Adhesive Rash Low 04/13/2019 Cephalexin Rash Low 10/22/2016 hallucination Codeine Other (See 10/22/2016 Comments) Other reaction(s): Hallucinations Hydrocodone-Acetaminophen Nausea Only 10/22/2016 Iodine Rash Low 10/22/2016 Latex Rash Low 04/13/2019 Sick and hallucinations Morphine Other (See 10/22/2016 Comments) Aplzc5-[id number]-Fis Rash Low 01/2017 h Oil Povidone-Iodine Rash [...] 2 (two) times daily. Active vitamin A 26864 UNIT Take 10,000 0 capsule Units by [...] Area Manufactur er 01/14/2019 C01A / / [id number] Cement Bone [employer]ph[employer] Hv-R C01a - Cement/Yash N/A: Spine [employer]TR[employer]: [id number] ler/Adhesi Thoracic SPINAL Implanted: Qty: 1 on 11/09/2016 by pepe [employer] MediaAmarjit Rajan MD at [facility] 04/26/2018 C01B / / [id number] Cement Ktmx Kyphx Hv-R C01b - Cement/Yash N/A: Spine MEDTRON[employer]: [id number] ler/Adhesi Thoracic SPINAL Implanted: Qty: 1 on 11/09/2016 by pepe [email or web address] Amarjit Valdez MD at [facility] Results Not on fileafter 05/07/2019 Insurance Type Payer Benefit Subscriber ID Effective Phone Address Plan / Dates Group PPO BLUE CROSS/BLUE SHIELD BCBS OS [id number] 2016-P [address]EP [id number] [place] [id number]
--- OUTSIDE RECORDS SUMMARY | 2020-05-07 19:37 | XMS REPORT | Continuity of Care Document ---
Author Author [facility] t Organization [facility] Address [address] [place] [address] Phone Unavailable Care Team Providers Care Cake Puller Name Role Phone Manuelito AGUILAR, Viviane PCP RILEY SAUCEDO Attphys Unavailable Osvaldo Mancilla MD Attphys Viviane Billings MD Attphys [place] PRODUCTION SCHEDULER-CElizabeth Attphys [phone] IBAN ESTEVEZ Attphys Unavailable MIKAYLA MANCILLA Attphys Unavailable HA ALMEIDA Admphys Unavailable MIKAYLA MANCILLA Admphys Unavailable Problems Condition Name Condition Details Condition Category Status Onset Date Resolution Date Last Treatment Date Treating Clinician Comments Source Compression fracture of thoracic vertebra Compression fracture of thoracic vertebra Disease Active 2016-11-09 00:00:00 [facility] Allergies, Adverse Reactions, Alerts Allergy Name Allergy Type Status Severity Reaction(s) Onset Date Inacti ve Date Treating Clinician Comments Source Adhesive Drug Allergy Active Rash 2019-04-13 00:00:00 Paper tape ok [facility] Latex Drug Allergy Active Rash 2019-04-13 00:00:00 [facility] Lenalidomide Drug Allergy Active Rash 2019-04-13 00:00:00 [facility] Cephalexin Propensity to adverse reactions Active Rash 10-22 00:00:00 [facility] Codeine Propensity to adverse reactions Active Othe r (See Comments) 2016-10-22 00:00:00 hallucination [facility] Hydrocodone-Acetaminophen Propensity to adverse reactions Active Nausea Only 2016-10-22 00:00:00 Other reaction(s): Hallucina tions [facility] Iodine Propensity to adverse reactions Active Rash 2016-10-22 00 :00:00 [facility] Morphine Propensity to adverse reactions Active Othe r (See Comments) 2016-10-22 00:00:00 Sick and hallucinations [facility] Xlxtt9-Urkl6-Z09-E-Fa-Fish Oil Propensity to adverse reactions Active Rash 2016-10-22 00:00:00 [facility] Povidone-Iodine Propensity to adverse reactions Active Rash 2016-10-22 00:00:00 [facility] Promethazine-Dm Propensity to adverse reactions Active Nausea And Vomiting 2016-10-22 00:00:00 [facility] Propoxyphene-Acetaminophen Propensity to adverse reactions Active Other (See Comments) 2016-10-22 00:00:00 Unknown [facility] Sulfamethoxazole-Trimethoprim Propensity to adverse reactions Active Hives 2016-10-22 00:00:00 [facility] Sulfated Mucopolysaccharides Propensity to adverse reactions Active 2016-10-22 00:00:00 Other reaction(s): Other (Se e Comments)Headaches [facility] Social History Social Habit Start Date Stop Date Quantity Comments Source Sex Assigned At [facility] Tobacco use and exposure 2019-04-17 00:00:00 2019-04-17 00:00:00 Nevjenna r used [facility] Alcohol intake 2019-04-17 00:00:00 2019-04-17 00:00:00 Current non-drinker of alcohol (finding) [facility] Smoking Status Start Date Stop Date Source Never smoker [facility] Medications Ordered Medication Name Filled Medication Name Start Date Stop Da te Current Medication? Ordering Clinician Indication Dosage Frequency Signature (SIG) Comments Components Source lisinopril (PRINIVIL,ZESTRIL) 5 MG tablet 2019-04-17 12:05:10 Yes 5mg QD Take 5 mg by mouth daily. [facility] amLODIPine (NORVASC) 5 MG tablet 2019-04-17 12:05:10 Yes 5mg QD Take 5 mg by mouth daily. [facility] zolpidem (AMBIEN) 2.5 mg half tablet 2019-04-17 12:05:10 Ye s 2.5mg Take 2.5 mg by mouth every night as needed for Insomnia. [facility] dextromethorphan-guaifenesin (MUCINEX DM) 30-600 mg per 12 h r tablet 2019-04-17 12:05:10 Yes 1{tbl} Take 1 tablet by m outh as needed . [facility] ferrous sulfate 325 (65 FE) MG tablet 2019-04-17 12:05:10 Yes 325mg Q.5D Take 325 mg by mouth 2 (two) times daily. [facility] vitamin A 58639 UNIT capsule 2019-04-17 12:05:10 Yes 74796V QD Take 10,000 Units by mouth daily. [facility] b complex vitamins tablet 2019-04-17 12:05:10 Yes 1{tbl} QD Take 1-2 tablets by mouth daily. [facility] [place] ascorbic acid, vitamin C, (VITAMIN C) 1000 MG tablet 2 12:05:10 Yes 1000mg Q.5D Take 1,000 mg by mouth 2 (two) times diana ly. [facility] vitamin E 400 UNIT capsule 2019-04-17 12:05:10 Yes 400U QD Take 400-800 Units by mouth daily. [facility] alpha lipoic acid 300 mg Cap 2019-04-17 12:05:10 Yes 1{capsule} QD Take 1 capsule by mouth daily. [facility] bromelains 500 mg Tab 2019-04-17 12:05:10 Yes 1{tbl} Q.5D Take 1 tablet by mouth 2 (two) times daily. [facility] chromium picolinate 400 mcg Tab 2019-04-17 12:05:10 Yes 800ug Q.5D Take 800 mcg by mouth 2 (two) times daily. I [facility] echinacea 500 mg Cap 2019-04-17 12:05:10 Yes 1{capsule} Take 1 capsule by mouth as needed. [facility] folic acid (FOLVITE) 800 MCG tablet 2019-04-17 12:05:10 Yes 800ug Q.5D Take 800 mcg by mouth 2 (two) times daily. [facility] garlic 1,000 mg Cap 2019-04-17 12:05:10 Yes 1{capsule} Q.5D Take 1 capsule by mouth 2 (two) times daily. I [facility] coenzyme Q10 100 mg capsule 2019-04-17 12:05:10 Yes 100mg Q.5D Take 100 mg by mouth 2 (two) times daily. [facility] FLAXSEED, LINSEED, (FLAX SEED OIL) 1,000 mg Cap 2019-04-17 12:05 :10 Yes 2000mg QD Take 2,000 mg by mouth daily. [facility] magnesium gluconate (MAGONATE) 27.5 mg (500 mg) tablet 2019-04-17 12:05:10 Yes 500mg Q.5D Take 500 mg by mouth 2 (two) times daily . [facility] milk thistle 200 mg Cap 2019-04-17 12:05:10 Yes 1{capsule} QD Take 1 capsule by mouth daily. [facility] ANTIOX #11/OM3/DHA/EPA/LUT/JANENE (OCUVITE ADULT 50+ ORAL) 2019-04-17 12:05:10 Yes 1{tbl} QD Take 1 tablet by mouth daily. [facility] olive leaf extract 250 mg Cap 2019-04-17 12:05:10 Yes 1{capsule} Take 1 capsule by mouth as needed. [facility] GLUCOSAMINE HCL/CHONDR SESAY A NA (OSTEO BI-FLEX ORAL) 2018-06 12:05:10 Yes 100mg QD Take 100 mg by mouth daily. [facility] L. acidophilus-L. rhamnosus (PROBIOTIC) 15 billion cell Cap 2019-04-17 12:05:10 Yes 1{capsule} QD Take 1 capsule by mouth d aily. [facility] royal jelly 500 mg Cap 2019-04-17 12:05:10 Yes 1000mg Q.5D Take 1,000 mg by mouth 2 (two) times daily. [facility] selenium 200 mcg Cap 2019-04-17 12:05:10 Yes 1{capsule} QD Take 1 capsule by mouth daily. [facility] TURMERIC ROOT EXTRACT ORAL 2019-04-17 12:05:10 Yes 538mg QD Take 538 mg by mouth daily. [facility] zinc gluconate 50 mg tablet 2019-04-17 12:05:10 Yes 50mg QD Take 50 mg by mouth daily. [facility] azelastine (ASTELIN) 137 mcg (0.1 %) nasal spray 2019-04-17 12:05:10 Yes 1{spray} QD 1 spray by Nasal route daily Use in each nostri l as directed . [facility] dexAMETHasone (DECADRON) 4 MG tablet 2019-04-17 12:05:10 Ye s 40mg Q7D Take 40 mg by mouth once a week. [facility] montelukast (SINGULAIR) 10 mg tablet 2019-04-17 12:05:10 Ye s 10mg QD Take 10 mg by mouth nightly. [facility] BIOTIN ORAL 2019-04-17 12:05:10 Yes Take by mouth. [facility] UNKNOWN 2019-04-17 12:05:10 Yes cbd oil dial y . [facility] Procedures This patient has no known procedures. Plan of Care Planned Activity Planned Date Details Comments Source Future Scheduled Test 2020-02-16 00:00:00 INFLUENZA VACCINE (#1) [code = INFLUENZA VACCINE (#1)] [facility] Encounters Start Date/Time End Date/Time Encounter Type Admission Type Att[facility] Facility Care Department Encounter ID Source 2020-04-28 09:32:34 2020-04-28 11:22:25 Office Visit Osvaldo Mancilla [facility] [place] [id number] 2020-04-22 13:27:19 2020-04-22 14:46:21 Office Visit Osvaldo Mancilla [facility] [place] [id number] 2020-04-12 14:36:12 2020-04-12 17:51:46 Office Visit Viviane Haywood [facility] [id number] 2020-03-22 12:28:02 2020-03-22 15:09:37 Office Visit Osvaldo Mancilla [facility] [place] [id number] 2020-02-23 12:14:31 2020-02-23 13:15:28 Office Visit Osvaldo Mancilla [facility] [place] [id number] 2020-01-26 12:38:56 2020-01-26 13:50:07 Office Visit Osvaldo Mancilla [facility] [place] [id number] 2019-11-18 11:27:21 2019-11-18 11:57:21 Office Visit Tiesha Carlsongh [facility] [id number] 2019-10-01 12:15:43 2019-10-01 14:28:40 Office Visit Osvaldo Mancilla [facility] [place] [id number] 2019-04-23 13:46:25 2019-04-23 14:46:37 Office Visit Osvaldo Mancilla [facility] [place] [id number] 2019-02-26 12:29:17 2019-02-26 14:03:53 Office Visit Osvaldo Mancilla [facility] [place] [id number] 2019-02-11 08:34:37 2019-02-11 15:13:28 Office Visit Viviane Haywood [facility] [id number] 2019-01-09 09:33:41 2019-01-09 10:03:41 Office Visit Viviane Haywood [facility] [id number] Results Test Description Test Time Test Comments Results Result Comments Source CT HIP RIGHT WO 2020-05-07 19:03:00 [facility] 1940 Sex: [place] [address] Patient Name: HU SOLITARIO MR #: [id number] : 1940 Age/Sex: 79/F Req #: [id number] [facility] Physician: Ordered by: RILEY SAUCEDO DO Report #: [id number] Location: Room/Bed: Procedure: [id number] CT/CT HIP RIGHT WO Exam Date: 05/07/20 Exam Time: 1820 REPORT STATUS: Signed EXAM: CT of the site without contrast INDICATION: Status post fall with right hip pain. COMPARISON: Same day plain radiographs.. TECHNIQUE: Multidetector CT scanning of the site was performed. Coronal and sagittal multiplanar reformations were obtained. RADIATION DOSE: Total DLP: 210 mGy*cm Estimated effective dose: (DLP x 0.014 x size factor) mSv CTDIvol has been reviewed. It is below the limits set by the Radiation Protocol Committee (RPC). Dose modulation, iterative reconstruction, and/or weight based adjustment of the mA/kV was utilized to reduce the radiation dose to as low as reasonably achievable. FINDINGS: Bones/joints: No acute fracture or dislocation. There are multiple punctate lytic lesions throughout the bones. There are mild degenerative changes of the right hip. Soft Tissues: There are punctate osseous fragments with mild edema of the hamstring muscles. Others: There is right inguinal hernia which contains a short segment of small bowel. No evidence of strangulation. The remainder of the imaged pelvic organs are unremarkable. IMPRESSION: 1. No acute fracture or dislocation. 2. Multiple punctate lytic lesions throughout the bones. Differential diagnoses include multiple myeloma, lymphoma versus metastatic disease. Correlate with clinical history of malignancy and/or complete workup. 3. Punctate osseous fragment with mild edema of the hamstring muscles. These findings likely represent hamstring muscle strain with probable partial-thickness tear. 4. Right inguinal hernia containing short segment of small bowel. No evidence of bowel strangulation or obstruction. Signed by: Anthony Corona MD on 05/07/2020 7:10 PM Dictated By: ANTHONY CORONA MD 09 Transcribed By: KRISSY on 05/07/201909 COPY TO: LEWISRILEY HIP RIGHT 2-3 VW (+/- PELVIS) 2020-05-07 18:51:00 [facility] HU SOL[facility] : 1940 Sex: F [facility] [address] [address] Patient Name: HU SOLITARIO MR #: [id number] : 1940 Age/Sex: 79/F Req #: [id number] Adm Physician: Ordered by: RILEY SAUCEDO DO Report #: [id number] Location: ER Room/Bed: Procedure: [id number] DX/HIP RIGHT 2-3 VW (+/- PELVIS) Exam Date: Exam Time: REPORT STATUS: Signed X-ray AP view of the pelvis. 2 views of the right hip. HISTORY: Pain. COMPARISON: None available. FINDINGS: Bone/joints: No acute fracture or dislocation. There are multiple punctate lytic lesions throughout the bones. Soft tissues: Multiple phlebolith projecting over the pelvis. There are granulomas projecting over the left gluteal soft tissues. Others: The sacroiliac joints are symmetric. No pubic symphyseal widening. IMPRESSION: 1. No acute fracture or dislocation. 2. Multiple punctate lytic lesions throughout the bones. Differential diagnoses include multiple myeloma, lymphoma versus m etastatic disease. Correlate with clinical history of malignancy and/or complete workup. Signed by: Anthony Corona MD on 05/07/2020 6:55 PM Dictated By: ANTHONY CORONA MD 54 Transcribed By: KRISSY on 05/07/201854 COPY TO: RILEY SAUCEDO DO LUMBAR 3 VIEW 2020-05-07 18:44:00 [facility] 1940 Sex: [place] [address] Patient Name: HU SOLITARIO MR #: [id number] : 1940 Age/Sex: 79/F Req #: [id number] [facility] Physician: Ordered by: RILEY SAUCEDO DO Report #: [id number] Location: ER Room/Bed: Procedure: [id number] DX/LUMBAR 3 VIEW Exam Date: 05/07/20 Exam Time: 1750 REPORT STATUS: Signed Lumbar Spine Radiographs: 3 views HISTORY: Lower back pain status post fall. COMPARISON: None available. DISCUSSION: The bones are diffusely demineralized. Alignment: There is grade 2 anterolisthesis of L4 on L5. Status post L4-L5 posterior spinal fusion with interbody cage device. Vertebral bodies: Compression fractures of T7 and T8 of indeterminate age. There is chronic compression fracture of T9 vertebral body status post vertebroplasty with focal kyphosis. Intervertebral disc spaces: Multilevel degenerative disc disease. Prevertebral soft tissues: Atherosclerotic calcification of the abdominal aorta. Others: The sacroiliac joints are symmetric. Partially imaged abdomen demonstrates normal bowel gas pattern. IMPRESSION: 1. T7 and T8 compression fractures of indeterminate age. Correlate with point tenderness. 2. Chronic compression fracture of T9 vertebral body. 3. Lumbar spondylosis with multilevel degenerative disease. 4. L4-5 posterior spinal fusion with grade 2 anterolisthesis of L4 on L5. Signed by: Anthony Corona MD on 05/07/2020 6:50 PM Dictated By: ANTHONY CORONA MD 49 Transcribed By: KRISSY on 05/07/201849 COPY TO: RILEY SAUCEDO DO MR, SPINE, LUMBAR, WITHOUT / WITH IV [...] degenerative foraminal stenoses as described above. Signed: Milton Wallis Verified Date/Time: 11/21/2018 11:22:23 Reading Location: [facility] Reading Room [address] [place] [address] -CREATININE 2018-11-19 15:34:00 Test Item POC-CREATININE (BEAKER) (test code = 1859) 0.7 mg/dL 0.6-1.[address] [facility] [address] POC-EGFR (BEAKER) (test code = 1860) 81 mL/min/1.73M2 BONE MARROW [id number] 16:08:00Bone Marrow Pathology Report Case: [id number] Authorizing Provider: Osvaldo Mancilla MD Collected: 10/06/2018 0935 Ordering Location: [facility] Radiology Main Received: 10/06/2018 0954 Pathologist: Filiberto Ivory MD Specimens: A) - [...] PLASMA CELLS. Signing Pathologist Direct Phone Line: [phone] signed by Filiberto Cardoza MD on 10/08/2018 at 1:31 PM 16455; 12447; 11778 x 2; 92556 ; 58835 x2, 18338, 57849 b3Nwldnwvrsb gammopathy of undetermined significance.Jose Guadalupe ne marrow [...] in casse tte C following adequate decalcification. /ewARIZONA SPINE AND JOINT HOSPITALE MARROW ASPIRATE:QUALITY:Aspi rate- AdequateTouch imprint- AdequateMARROW DIFFERENTIAL COUNT: Number of cells counted: 5001% Blasts 1% Promyelocytes 18% Myelocytes/Metamyelocytes 26% Bands/ Segmented granulocytes 3% Eosinophils and precursors 1% Basophils and precursors 14% Erythroid precursors 9% Lymphocytes 3% Yyetwecik47% Plasma cellsBlasts: Not increased Erythropoiesis: Present with [...] biopsy reveal increased number of monoty pic, [place]-restricted,CD138+,CD56 + plasma cells (20-30%). This population is [...] KAPPA, HICKS BDA, CD20, CONGO RED, Cyclin J4Kstnnzqzavtfmhpaqvpj technical testing was perfor med at [facility], Pathology Laboratory where it was preston curiel and its performance characteristics were determined. It [...] to perform high complexity clinical laboratory testing.B [facility], Department of Pathology, [address] [place] [address], [facility], [facility] o f [facility], [address] [place] [address], OQRL CYTOMETRY [id number] 14:05:00* Test Item Value Reference Range Interpretation Comments FLOW CYTOMETRY RESULT POINTER (YONG) (test code = 2758) See Se rede Report FLOW CYTOMETRY AP CASE # (YONG) (test code = 2759) [id number] FLOW [id number] 12:48:00Flow Cytometry Report Case: [id number] Authorizing Provider: Osvaldo Mancilla MD Collected: 10/06/2018 0935 Ordering Location: [facility] Radiology Main Received: 10/06/2018 0975 Pathologist: Filiberto Ivory MD Specimen: Other BONE MARROW, RIGHT ILIAC CREST, FLOW CYTOMETRY:KAPPA RESTRICTED, MONOTYPIC PLASMA CELL POPULATION (3.7% OF TOTAL CELLS)CORRELATION WITH MORPHOLOGIC FINDINGS REQUIRED TO DEFINITIVELY ASSESS THE PERCENTAGE OF PLASMA CELLS. See concurrent bone marrow study ([id number] monoclonal gammopathyBONE MARROW CD8, surface-[place], CD56, surface-Lambda, CD5, CD19, CD10, CD3, CD20, CD4, CD45, CD14, CD13, CD33, CD117, CD34, cKappa, cLambda, CD38, QJ665Zutlwiwf Viability: 93.8% Number of Events Acquired: [id number] plasma cell population identified (3.7 of cellularity)POSITIVE: CD45 (dim), CD138, CD38, CD56, [place] light chainNEGATIVE: CD19, CD20, lambda In addition, [...] developed and their performance characteristics determined by [facility].They have not been cleared or approved by the U.S. Food and Drug Administration. The FDA has determined that such clearance or approval is not necessary. It should not be regarded as investigational or for research.This laboratory is certified under the Clinical Laboratory Improvement Amendments of 1988 ("CLIA") as qualified to perform high- complexity clinical testing.[facility], Department of Path ology, [address] [place] [address], [facility], Department of Path[facility], [address] [place] [address], EINT MARROW PROCESS.2018-10-06 10:15:00* Test Item Value Reference Range Interpretation Comments ANATOMIC CASE# (YONG) (test code = 2470) [id number] ORDERED BY DOCTOR# (BEDIXON) (test code = 2457) Udden PERFORMED BY DOCTOR# (YONG) (test code = 2458) Yesika CLOT RECEIVED? [...] Verified Date/Time: 10/06/2018 09 :55:08 Reading Location: [facility] C013X Ortho Consult Reading Room Cheyenne romero signed by: VIKAS JARRETT M.D. on 10/06/2018 09:55 AM [id number] 07:07:00* Test Item Value Reference Range Interpretation Comments PARTIAL THROMBOPLASTIN TIME (BEAKER) (test code = 760) 29.5 seconds 22.5-36.0 PROTHROMBIN TIME/[id number] 07:06:00* Test Item Value Reference Range Interpretation [...] mechanical heart valves.CBC W/PLT COUNT & AUTO [id number] 07:02:00* Test Item Value Reference Range Interpretation [...] IMMATURE GRANULOCYTES-RELATIVE PERCENT (BEAKER) (test code = 7831) 0 % 0-1
[2020-05-07 20:10] LABS: LYMPHOCYTES % (MANUAL) 3 % (19-48); MONOCYTES % (MANUAL) 14 % (3.4-9.0); NEUTROPHILS % (MANUAL) 83 % (40-74)
[2020-05-07 20:11] LABS: PLATELET ESTIMATE ADEQUATE; PLATELET MORPHOLOGY COMMENT NORMAL; RBC MORPHOLOGY COMMENT NORMAL
[2020-05-07] MEDS ORDERED: DEXTROSE 50% SYRINGE 50 ML IV PRN (20:15)
[2020-05-07] MEDS ORDERED: DOCUSATE SODIUM 100 MG CAP PO PRN (20:15)
[2020-05-07] MEDS ORDERED: POTASSIUM CHLORIDE 20 MEQ TAB CR PO PRN (20:15)
[2020-05-07] MEDS ORDERED: POLYETHYLENE GLYCOL 3350 17 GM PACK PO PRN (20:15)
[2020-05-07] MEDS ORDERED: ALBUTEROL/IPRATROPIUM 3 ML NEB NEB PRN (20:15)
[2020-05-07] MEDS ORDERED: BENZONATATE 100 MG CAP PO PRN (20:15)
[2020-05-07 20:30] VITALS: BP 120/68
[2020-05-07 20:50] VITALS: BP 120/68
--- NOTE | 2020-05-07 20:50 | NUR ---
Pt admitted to room 295 via stretcher from home alone. Pt alert and oriented to name, hospital, situation, and diagnosis: Right hip pain. Pt states pain increased to 10/10 unable to move right leg. Pain level 6/10 at this time, previously medicated in ER. Pt lungs CTA, O2 @2L via NC. Skin warm, thin, and dry, no wounds noted. Last BM 05/07. Diaper and Purewick in place, due to recent immobility. Pt oriented to room, to transition folder, call light within reach. Bed low ands locked. Bed alarm on.
--- NOTE | 2020-05-07 21:16 | Diagnostic Imaging Report ---
History: Trauma, fall, pain, history of myeloma. Comparison studies: Lumbar spine x-ray 05/07/2020 Technique: Axial images were obtained through the lumbar spine. Coronal and sagittal images reconstructed from the axial data. Dose modulation, iterative reconstruction, and/or weight based adjustment of the mA/kV was utilized to reduce the radiation dose to as low as reasonably achievable. Dose modulation, iterative reconstruction, and/or weight based adjustment of the mA/kV was utilized to reduce the radiation dose to as low as reasonably achievable. Intravenous contrast: None Findings: Number of non-rib bearing vertebral bodies: 5 Alignment: Mild thoracolumbar levocurvature with hyperlordotic lumbar curvature and Grade 2 anterolisthesis of L4 and L5 by approximately 12 mm. Soft tissues and dorsal paraspinal musculature: Postsurgical changes in the lower lumbar soft tissues with moderate symmetric atrophic changes in the dorsal paraspinal musculature. Vertebrae: Demineralized bones with multiple scattered lucent foci consistent with patient's history of multiple myeloma. Postsurgical changes at L4-L5 written there is prior discectomy, posterior instrumented fusion with rods fixated via bilateral pedicle screws without hardware failure or hardware loosening, prior laminectomies and right facetectomy. Fracture along the superior L3 endplate with approximately 25% height loss without retropulsion is age-indeterminate. Chronic-appearing fracture of the superior L2 endplate with approximately 50% height loss centrally without retropulsion. Degenerative changes: T11-T12: Severely degenerated disc. T12-L1: Severely degenerated disc. Minimal retrolisthesis of T12 on L1 with associated disc osteophyte complex and facet arthrosis contribute to moderate bilateral foraminal stenosis (right greater than left.) No significant canal stenosis. L1-L2: Disc osteophyte complex and facet arthrosis result in moderate right and mild left foraminal stenosis. No significant canal stenosis. L2-L3: Disc bulge, thickened ligamentum flavum and facet arthrosis without significant canal or foraminal stenosis. L3-L4: Disc bulge and facet arthrosis result in mild bilateral foraminal stenosis. No gross significant canal stenosis. L4-L5: Changes of prior discectomy with obliterated disc space. Canal has been surgically decompressed. Anterolisthesis of L4 and L5 with associated hypertrophic changes at the facets result in mild left foraminal stenosis. Right foramen has been surgically decompressed. L5-S1: Moderately degenerated disc with vacuum phenomenon. Disc osteophyte complex asymmetric to the left and facet arthrosis result in moderate left foraminal stenosis. No significant canal or right foraminal stenosis. Additional findings: Scattered colonic diverticulosis. Partially imaged right lumbar hernia. IMPRESSION: 1. Demineralized bones with scattered lytic foci consistent with history of myeloma. 2. Age-indeterminate superior L3 endplate fracture, approximately 25% height loss, no retropulsion. 3. Chronic-appearing superior L2 superior endplate fracture. 4. Grade 2 anterolisthesis of L4 on L5 with postsurgical changes at L4-L5 as described. 5. Multilevel degenerative changes as described. Lumbar spine MRI may better evaluate fracture acuity as warranted. Findings discussed with Dr. Coats at 9:05 PM on 05/07/2020. Signed by: Dr. Hola Shah M.D. on 05/07/2020 9:12 PM
[2020-05-07] MEDS: SODIUM CHLORIDE 0.9% 1000ML 1,000 ML IV SCH (21:17)
[2020-05-07] MEDS: ACETAMINOPHEN 325 MG TAB PO PRN (21:34)
[2020-05-07] MEDS: MELATONIN 5 MG TABLET PO PRN (21:34)
[2020-05-07] MEDS: ACYCLOVIR 200 MG CAP PO SCH (23:45)
[2020-05-07] MEDS: KETOROLAC TROMETHAMINE 30 MG/ML VIAL IV SCH (23:53)
[2020-05-07 23:57] VITALS: BP 109/55
[2020-05-08] VITALS (7 sets, daily range): BP systolic 95–115; BP diastolic 46–70
[2020-05-08 01:40] LABS: CREATINE KINASE MB 0.7 ng/mL (0-5.0)
[2020-05-08] MEDS: KETOROLAC TROMETHAMINE 30 MG/ML VIAL IV SCH ×3 (05:30→17:46)
[2020-05-08 06:48] LABS: BASOPHILS % 0.1 % (0.0-1.0); HEMOGLOBIN 10.9 g/dL (12.0-16.0); LYMPHOCYTES # (AUTO) 0.4 (1.0-3.2); LYMPHOCYTES % 3.3 % (18.0-39.1); MEAN CORPUSCULAR HEMOGLOBIN 33.4 pg (28-32); MEAN CORPUSCULAR VOLUME 101.2 fL (81-99); MONOCYTES # (AUTO) 1.6 (0.2-0.8); MONOCYTES % 11.9 % (4.4-11.3); NEUTROPHILS # (AUTO) 11.3 (2.1-6.9); NEUTROPHILS % 84.1 % (38.7-80.0); PLATELET COUNT 190 x10e3/uL (140-360); RED BLOOD COUNT 3.26 x10e6/uL (3.6-5.1); RED CELL DISTRIBUTION WIDTH 15.2 % (11.7-14.4)
[2020-05-08 07:22] LABS: ALBUMIN 2.9 g/dL (3.5-5.0); ALBUMIN/GLOBULIN RATIO 0.7 (0.8-2.0); ANION GAP 13.6 mmol/L (8-16); CALCIUM 8.1 mg/dL (8.4-10.2); CREATININE, SERUM 0.9 mg/dL (0.57-1.11); POTASSIUM 3.6 mmol/L (3.5-5.1)
--- NOTE | 2020-05-08 08:00 | NUR ---
RECEIVED PT RESTING IN BED. PT IN STABLE CONDITION. NO C/O PAIN VERBALIZED. TELE APPLIED. NON-SKID SOCKS APPLIED. CALL LIGHT WITHIN REACH. WILL CONTINUE TO MONITOR.
[2020-05-08] MEDS: LISINOPRIL 2.5 MG TAB PO SCH (09:00)
[2020-05-08] MEDS: PANTOPRAZOLE SOD 40 MG TABEC PO SCH (09:16)
[2020-05-08] MEDS: SODIUM CHLORIDE 0.9% 1000ML 1,000 ML IV SCH (09:16)
[2020-05-08] MEDS: AMLODIPINE BESYLATE 5 MG TAB PO SCH (09:16)
[2020-05-08] MEDS: MONTELUKAST SODIUM 10 MG TAB PO SCH (09:20)
[2020-05-08] MEDS: ACYCLOVIR 200 MG CAP PO SCH ×2 (09:59→16:00)
--- NOTE | 2020-05-08 10:40 | Consultation ---
DATE OF CONSULTATION: 05/08/2020 CHIEF COMPLAINT: Right hip pain. HISTORY OF PRESENT ILLNESS: This patient is an 79-year-old female with a significant history of multiple myeloma who presents with a spontaneous onset of right hip pain that started yesterday. She denies any injuries or falls. She localizes pain to the right groin region. She states she is unable to bear weight on the right leg. She states she has difficulty moving the leg at the hip. She states the pain radiates down the leg. She denies any paresthesias in the right lower extremity. She states she has a history of sciatica, but this pain is different. PAST MEDICAL HISTORY: Multiple myeloma, breast cancer. SOCIAL HISTORY: The patient is a and lives by herself. She denies nicotine or ETOH use. ALLERGIES: SULFA, CEPHALEXIN, CODEINE, HYDROCODONE, IODINE, LATEX, MORPHINE, PROMETHAZINE, PROPOXYPHENE, TRIMETHOPRIM, SULFAMETHOXAZOLE. REVIEW OF SYSTEMS: All negative other than right hip pain. MEDICATIONS: See MAR. PHYSICAL EXAMINATION: GENERAL: This is a well-nourished female who is in no apparent distress. She is awake, alert, and oriented appropriately. HIP: Gross inspection of her right hip shows no bruising or swelling. She has some mild tenderness to palpation along the right thigh. She has painful and limited passive range of motion in the right hip. The right leg is in neutral rotation. Limb lengths are equal. Distal neurovascular exam is normal. IMAGING: The patient had x-rays and a CT scan of the right hip as well as the lumbar spine. X-rays of the right hip show multiple punctate lytic lesions throughout the femur. There is no acute fracture or dislocation. CT scan shows the same thing. There does not appear to be an impending fracture. CT scan of the lumbar spine shows a previous instrumented fusion at L4-L5. She has a chronic L2 compression fracture as well as an age indeterminate compression fracture of L3. ASSESSMENT AND PLAN: This is an 79-year-old female with right hip pain secondary to lesions from multiple myeloma. The findings were discussed with the patient at length. She was diagnosed with multiple myeloma roughly 1-1/2 years ago. She has been treated with chemotherapy for the past three months. She states that she had a bone scan roughly three months ago which showed the lytic lesions described on x-ray. I explained the concerns about the sudden onset of right hip pain. The risk of a pathologic fracture were discussed. The treatment options were explained. The option of a prophylactic nail placed in the right femur was discussed. The risks and benefits were explained. She gets her oncological care as well as PCP both at [facility] and [facility]. She would like to discuss the options and situation with him first before making any decisions. I recommended we do a full workup. In the meantime, I am going to get a bone survey of the long bones. We will continue to follow the patient clinically in the hospital and discuss further options once we have the results of the x-rays. The patient states she understands and agrees with the plan. Thank you for the consultation. Dictated by Ryan Ballard PA-C MD KAYCEE Napoles/CONCEPCION /[id number]
--- NOTE | 2020-05-08 12:54 | Diagnostic Imaging Report ---
X-ray 2 views of the right femur. HISTORY: Pain. COMPARISON: None available. FINDINGS: Bone/joints: No acute fracture or dislocation. There are multifocal lucent lesions throughout the femur. There are moderate degenerative changes of the right hip. Soft tissues: No focal soft tissue abnormality. IMPRESSION: 1. Multiple punctate lytic lesions throughout the right femur. Differential diagnoses include multiple myeloma, lymphoma versus metastatic disease. Correlate with clinical history of malignancy and/or complete workup. More complete assessment options include complete bone survey, CT of the chest/abdomen/pelvis, PET/CT and bone biopsy. 2. No acute fracture or dislocation. Moderate degenerative change of the right hip. Signed by: Ghanshyam Landry MD on 05/08/2020 12:51 PM
[2020-05-08 12:59] LABS: CREATINE KINASE MB 0.8 ng/mL (0-5.0)
--- NOTE | 2020-05-08 13:09 | Diagnostic Imaging Report ---
X-ray 2 views of the left femur; 2 views of the tibia/fibula. HISTORY: Pain. COMPARISON: None available. FINDINGS: Bone/joints: No acute fracture or dislocation. There are mild to moderate changes of the left hip and knee joints. There are multiple punctate lytic lesions throughout the femur. No lesions are identified within the left tibia/fibula. Soft tissues: No focal soft tissue maladies. IMPRESSION: 1. Multiple punctate lytic lesions throughout the left femur. Differential diagnoses include multiple myeloma, lymphoma versus metastatic disease. Correlate with clinical history of malignancy and/or complete workup. More complete assessment options include bone survey, CT of the chest/abdomen/pelvis, PET/CT and bone biopsy. 2. These lytic lesions are not identified in the tibia/fibula. 3. No acute fracture or dislocation. Signed by: Ghanshyam Landry MD on 05/08/2020 1:06 PM
--- NOTE | 2020-05-08 13:54 | Diagnostic Imaging Report ---
X-ray - 3 view(s) each humerus. HISTORY: Pain. COMPARISON: None available. FINDINGS: RIGHT: No displaced fracture. The osseous alignment is within normal limits. Multiple lytic lesions in the right humerus. The joint spaces are well-maintained. The soft tissues appear unremarkable. LEFT: No displaced fracture. The osseous alignment is within normal limits. No lytic lesion seen in the humerus. The joint spaces are well-maintained. The soft tissues appear unremarkable. IMPRESSION: 1. Multiple lytic lesions in the right humerus. Differential diagnoses include multiple myeloma, lymphoma versus metastatic disease. Correlate with clinical history of malignancy and/or complete workup. More complete assessment options include bone survey, CT of the chest/abdomen/pelvis, PET/CT and bone biopsy. 2. No lytic lesion identified in the left humerus. Signed by: Ghanshyam Landry MD on 05/08/2020 1:51 PM
[2020-05-08] MEDS: ENOXAPARIN SOD INJ 40 MG/0.4 ML SYR SC SCH (16:00)
[2020-05-08] MEDS: ACETAMINOPHEN 325 MG TAB PO PRN ×2 (16:01→16:36)
[2020-05-08] MEDS ORDERED: NEOMYCIN-POLYMY10 ML OP (17:51)
--- NOTE | 2020-05-08 19:00 | NUR ---
PT RESTING IN BED WITH DR. COURTNEY AT BEDSIDE. RESPIRATIONS EVEN AND BREATHING UNLABORED. PT IN STABLE CONDITION. BEDSIDE SHIFT REPORT GIVEN TO ONCOMING NURSE.
--- NOTE | 2020-05-08 19:05 | NUR ---
Bedside rounds completed with morning nurse. Pt alert and oriented, lying in bed, HOB 45 degrees, denies pain at this time. Daughter at bedside. Call light within reach. Bed low and locked. Bed alarm on.
[2020-05-08] MEDS: LIDOCAINE 4% PATCH TP SCH (20:01)
--- NOTE | 2020-05-08 23:48 | History and Physical ---
CHIEF COMPLAINT: Right hip pain. HISTORY OF PRESENT ILLNESS: An 79-year-old female with known history of multiple myeloma, on chemotherapy, history of breast cancer, who presented to the emergency room with complaints of acute onset of right hip pain that began yesterday. The patient reports that she was at home, doing some basic chores, noticed that her right hip was in severe pain. She called EMS and was brought into the ED for further evaluation. She denies any trauma or any falls. Denies aggravating her right lower extremity. No reports of chest pain, palpitation, nausea, vomiting. No fever. The patient is seen and evaluated at bedside on the medical floor. She is currently doing well with no other issues at this time. REVIEW OF SYSTEMS: Pertinent positive; right hip pain. The rest of 14-point review of systems have been reviewed with the patient and are negative. ALLERGIES: TO SULFA, KEFLEX, CODEINE, HYDROCODONE, IODINE, LATEX, MORPHINE, PROMETHAZINE, PROPOXYPHENE. HOME MEDICATIONS: Dexamethasone once a week, fluticasone, guaifenesin, neomycin, polymycin, Ambien, ascorbic acid, cholecalciferol, vitamin E, acyclovir, amlodipine, lisinopril, Singulair. MEDICAL HISTORY: Hypertension, multiple myeloma, on chemotherapy, breast cancer. PAST SURGICAL HISTORY: None. FAMILY HISTORY: Hypertension and diabetes. SOCIAL HISTORY: No drugs. No alcohol. Does not smoke. She is a former smoker. PHYSICAL EXAMINATION: VITAL SIGNS: Temperature is 98, pulse 79, respiratory rate is 16, blood pressure is 115/60, pulse ox 100% on room air. GENERAL: Not in acute distress. Alert and oriented x3. Cooperative on examination. HEENT: Head is normocephalic and atraumatic. Eyes; pupils are equal, round, and reactive to light bilaterally. PULMONARY: Clear to auscultation bilaterally. No wheezing, rales, or rhonchi. No crackles appreciated. CARDIOVASCULAR: Positive S1 and S2. No murmurs, rubs, or gallops appreciated. ABDOMEN: Soft, nondistended, nontender to palpation. Bowel sounds present. MUSCULOSKELETAL: Strength is 5/5 throughout. No evidence of muscle deficits on examination. She does have pain in the right hip with rotation. NEUROLOGICAL: Cranial nerves II through XII grossly intact. LABORATORY FINDINGS: Show white count was 13.3, hemoglobin 10.9, hematocrit is 33, and platelets of 190. Chemistry; sodium 134, potassium 3.6, chloride 102, bicarb 22, anion gap of 13, BUN is 34, creatinine is 0.9, glucose is 125, calcium is 8.1, total bilirubin 0.4, AST 22, ALT 15, alkaline phosphatase 42. Troponins were negative. Albumin was 2.9. Coronavirus is pending. IMAGING STUDIES: Hip x-ray, no acute fracture or dislocation. Multiple punctate lytic lesions throughout the bones. Differential diagnosis includes multiple myeloma, lymphoma versus metastatic disease. Lumbar spine x-ray shows T7 and T8 compression fracture of indeterminate age. Correlate with point tenderness. Chronic compression fracture of T9 vertebral body. Lumbar spondylosis with multilevel degenerative disease. L4-L5 posterior spinal fusion with grade 2 anterolisthesis of L4 on L5. Hip CT shows no acute fracture or dislocation. Multiple punctate lytic lesions throughout the bones. There is a punctate fragment of mild edema of the hamstring muscles. These finding represent hamstring muscle strain with probable partial thickness tear. Right inguinal hernia containing short-segment of small bowel. No evidence of any bowel strangulation or obstruction. Lumbar CT, demineralized bone with scattered lytic foci consistent with history of myeloma. Age-indeterminate superior L3 endplate fracture, approximately 25% of height loss or retropulsion. Chronic appearing superior L2 superior endplate fracture. Multilevel degenerative changes as described. Lumbar MRI may be better evaluate is warranted. Femur x-ray on the lab shows multiple punctate lytic lesions throughout the left femur. There is no obvious acute fracture or dislocation noted. These lytic lesions are not identified in the tibia or fibula. Right femur x-ray, no acute fracture or dislocation noted. Moderate degenerative change of the right hip. Multiple punctate lytic lesions throughout the right femur. Humerus x-ray, no lytic lesions identified in the left humerus. Multiple lytic lesions in the right humerus. Tibia-fibula elbow x-ray, multiple punctate lytic lesions throughout the left femur. Lytic lesions are identified in the tibia and fibula. No acute fracture or dislocation. IMPRESSION: 1. Intractable right hip pain, likely seems to be right hamstring injury. 2. Age-indeterminate compression fracture. 3. Multiple myeloma, on chemotherapy. 4. Hypertension. PLAN: At this time, imaging studies were reviewed, shows no evidence of any fracture. I will go ahead and get an MRI of the right hamstring and MRI of the lumbar spine to further evaluate. Continue with anti-inflammatories. Orthopedic recommendations noted. They have been consulted. I will also consult with Hematology/Oncology. Restart home medications, antihypertensive medications. Lovenox for DVT prophylaxis. Continue with anti-inflammatories with Toradol. We will continue to monitor very closely. Get a.m. labs. MD GAL Krause/MODL /[id number]
[2020-05-09] VITALS (8 sets, daily range): BP systolic 99–129; BP diastolic 53–59
[2020-05-09] MEDS: SODIUM CHLORIDE 0.9% 1000ML 1,000 ML IV SCH ×3 (05:10→12:00)
[2020-05-09] MEDS: KETOROLAC TROMETHAMINE 30 MG/ML VIAL IV SCH ×4 (06:05→18:18)
[2020-05-09 06:22] LABS: BASOPHILS % 0.1 % (0.0-1.0); HEMATOCRIT 34.3 % (34.2-44.1); HEMOGLOBIN 11.3 g/dL (12.0-16.0); LYMPHOCYTES # (AUTO) 0.4 (1.0-3.2); LYMPHOCYTES % 2.9 % (18.0-39.1); MEAN CORPUSCULAR HEMOGLOBIN 33.4 pg (28-32); MEAN CORPUSCULAR HGB CONC 32.9 g/dL (31-35); MEAN CORPUSCULAR VOLUME 101.5 fL (81-99); MONOCYTES # (AUTO) 1.3 (0.2-0.8); MONOCYTES % 9.7 % (4.4-11.3); NEUTROPHILS # (AUTO) 11.8 (2.1-6.9); NEUTROPHILS % 86.8 % (38.7-80.0); PLATELET COUNT 179 x10e3/uL (140-360); RED BLOOD COUNT 3.38 x10e6/uL (3.6-5.1); RED CELL DISTRIBUTION WIDTH 15.5 % (11.7-14.4)
[2020-05-09 06:50] LABS: ALANINE AMINOTRANSFERASE 13 IU/L (0-55); ALBUMIN 2.4 g/dL (3.5-5.0); ALBUMIN/GLOBULIN RATIO 0.6 (0.8-2.0); ALKALINE PHOSPHATASE 48 IU/L (40-150); ANION GAP 9.5 mmol/L (8-16); BLOOD UREA NITROGEN 34 mg/dL (7-26); BUN/CREATININE RATIO 41 (6-25); CALCIUM 8.1 mg/dL (8.4-10.2); CARBON DIOXIDE 23 mmol/L (22-29); CHLORIDE 105 mmol/L (98-107); CREATININE, SERUM 0.82 mg/dL (0.57-1.11); EST GLOMERULAR FILTRATION RATE > 60 ML/MIN (60-); GLUCOSE 109 mg/dL (74-118); POTASSIUM 3.5 mmol/L (3.5-5.1); SODIUM 134 mmol/L (136-145)
[2020-05-09] MEDS: PANTOPRAZOLE SOD 40 MG TABEC PO SCH (09:42)
[2020-05-09] MEDS: AMLODIPINE BESYLATE 5 MG TAB PO SCH (09:42)
[2020-05-09] MEDS: LISINOPRIL 2.5 MG TAB PO SCH (09:43)
[2020-05-09] MEDS: LIDOCAINE 4% PATCH TP SCH (09:44)
[2020-05-09] MEDS: MONTELUKAST SODIUM 10 MG TAB PO SCH (09:44)
[2020-05-09] MEDS: ACYCLOVIR 200 MG CAP PO SCH ×2 (09:44→18:17)
--- NOTE | 2020-05-09 09:47 | NUR ---
Okay to remove tele while on MRI.
[2020-05-09] MEDS: ACETAMINOPHEN 325 MG TAB PO PRN ×2 (11:56)
--- NOTE | 2020-05-09 12:28 | NUR ---
Patient is transported for MRI at this time.
--- NOTE | 2020-05-09 13:51 | NUR ---
Patient is back from MRI. respiration even and unlabored without SOB.
--- NOTE | 2020-05-09 13:56 | Diagnostic Imaging Report ---
X-ray chest frontal view History: Fever Comparison: None Findings: Lines and tubes: Not applicable Central airways: Unremarkable Cardiac silhouette: Unremarkable Mediastinal silhouettes: Unremarkable Pleura: No pleural effusion, pneumothorax or thickening Diaphragms: See below Lungs: Bilateral interstitial prominence but no definite focal large interstitial process. No lung nodules. Opacity adjacent to the left hemidiaphragm likely representing a zone of atelectasis. Pneumonia cannot be entirely ruled out. Skeletal structures: Unremarkable Extrathoracic soft tissues: Unremarkable Impression: Left lower lobe patchy opacity silhouetting the left hemidiaphragm. It could represent atelectasis and/or pneumonia. Signed by: Venkatesh Chew MD on 05/09/2020 1:53 PM
--- NOTE | 2020-05-09 14:19 | Diagnostic Imaging Report ---
TECHNIQUE: Magnetic resonance imaging of the RIGHT femur was performed WITHOUT injected contrast. HISTORY: Pain COMPARISON: None available. FINDINGS: Bone: No osteonecrosis or acute fracture. Heterogeneous bone marrow with multiple areas of endosteal scalloping from myelomatous involvement. Soft tissues: Complete to near complete tear of the proximal right hamstring origin with edema/hemorrhage extending within the posterior, adductor, and overlying the lateral aspect of the anterior compartment. No abscess. Partially visualized degenerative arthrosis of the right hip and right knee with knee joint effusion. IMPRESSION: Right hamstring origin complete to near complete tear with edema/hemorrhage extending along the right thigh Signed by: Dr. Giorgio Retana M.D. on 05/09/2020 2:16 PM
--- NOTE | 2020-05-09 14:25 | Diagnostic Imaging Report ---
TECHNIQUE: Computed tomography imaging of the PELVIS was performed WITHOUT injected contrast using standard departmental protocols. Dose modulation, iterative reconstruction, and/or weight based adjustment of the mA/kV was utilized to reduce the radiation dose to as low as reasonably achievable. HISTORY: Pain, evaluate for etiology COMPARISON: CT of the hip joints first 2019 FINDINGS: Bone and bone marrow: Bone demineralization with heterogeneous appearance and multiple small lytic lesions compatible with myeloma. Articular cartilage: Degenerative arthrosis of the hips. Lower lumbar spondylosis with degenerative disc in the lower lumbar spine and postoperative change. Refer to CT lumbar spine report May 07, 2020. Soft tissues: Thickening/fluid within the right hamstring origin with edema extending down the right lower extremity. Refer to MRI femur report 05/09/2020 IMPRESSION: No acute CT finding. Bone demineralization with multiple small lytic lesion likely from history of myeloma. Refer to the MRI report 05/09/2020 in reference to the right hamstring origin tear. Signed by: Dr. Giorgio Retana M.D. on 05/09/2020 2:22 PM
[2020-05-09 14:38] LABS: COLOR,URINE YELLOW (YELLOW)
[2020-05-09 14:39] LABS: BILIRUBIN,URINE SMALL (NEGATIVE); CLARITY,URINE TURBID (CLEAR); KETONES,URINE TRACE (NEGATIVE); LEUKOCYTE ESTERASE ,URINE SMALL (NEGATIVE); NITRITE,URINE NEGATIVE (NEGATIVE); PROTEIN,URINE DIPSTICK 2+ (NEGATIVE); URINE UROBILINOGEN 0.2 mg/dL (0.2 - 1)
[2020-05-09 14:40] LABS: AMORPHOUS SEDIMENT,URINE MANY (FEW); BACTERIA,URINE MODERATE /HPF; EPITHELIAL CELLS,URINE MODERATE /LPF
[2020-05-09] MEDS: LEVOFLOXACIN 500MG/D5W 100ML 100 ML IV SCH (15:27)
[2020-05-09] MEDS: ENOXAPARIN SOD INJ 40 MG/0.4 ML SYR SC SCH (18:17)
--- NOTE | 2020-05-09 19:32 | NUR ---
Received change of shift report from AM nurse. Walking rounds completed.
[2020-05-10] VITALS (7 sets, daily range): BP systolic 105–151; BP diastolic 45–86
--- NOTE | 2020-05-10 | NUR ---
Patient AAOx3. Denies pain at this time. Low grade temp. Will give tylenol. Removed some of the covers. Continue monitor.
[2020-05-10] MEDS: ACETAMINOPHEN 325 MG TAB PO PRN ×2 (01:00→16:04)
--- NOTE | 2020-05-10 03:14 | NUR ---
Patient resting quitly at this time. Continue monitor.
[2020-05-10] MEDS: LISINOPRIL 2.5 MG TAB PO SCH (08:09)
[2020-05-10] MEDS: AMLODIPINE BESYLATE 5 MG TAB PO SCH (08:09)
[2020-05-10] MEDS: LIDOCAINE 4% PATCH TP SCH (08:47)
[2020-05-10] MEDS: ACYCLOVIR 200 MG CAP PO SCH ×2 (08:47→16:02)
[2020-05-10] MEDS: MONTELUKAST SODIUM 10 MG TAB PO SCH (08:47)
[2020-05-10] MEDS: PANTOPRAZOLE SOD 40 MG TABEC PO SCH (08:47)
--- NOTE | 2020-05-10 09:24 | NUR ---
RECEIVED BEDSIDE SHIFT REPORT FROM OFF GOING NURSE. PATIENT IS IN STABLE CONDITION, NO ACUTE DISTRESS NOTED. CALL LIGHT WITHIN REACH. BED IN THE LOWEST POSITION. BED ALARM ON. Addendum: 05/10/20 at 0925 by AUGUSTA FERRERA RN CORRECT TIME 0636.
--- NOTE | 2020-05-10 09:32 | NUR ---
NOTIFIED DARREN ALY FOR DR. ALMEIDA OF FEMUR MRI RESULTS. RIGHT HAMSTRING RUPTURE NOTED. PER PA, HE SAW PATIENT YESTERDAY AND SPOKE TO HER ABOUT THE TREATMENT PLAN WHICH WAS PT-WBAT WITH WALKER. HE ALSO RECOMMENDS OUTPATIENT PT. ORDERED WITH CASE MANAGEMENT. NOTIFIED DR. WILLIS OF PLAN. PER DR. WILLIS, HE WILL COME AND TALK TO PATIENT ABOUT PLAN.
--- NOTE | 2020-05-10 10:48 | NUR ---
BACK BRACE DELIVERED BY [employer]. SAL CALLED TO NOTIFY ORDER HAS BEEN SIGNED BY
[2020-05-10] MEDS: LEVOFLOXACIN 500MG/D5W 100ML 100 ML IV SCH (12:18)
--- NOTE | 2020-05-10 13:00 | NUR ---
PATIENT'S DAUGHTER AT BEDSIDE. SPOKE TO HER ABOUT [employer]ACH COMING TO SEE PATIENT IN REGARDS TO PROVIDING A WALKER. DAUGHTER STATED THAT SHE ALREADY HAS A WALKER AND DOES NOT NEED ANOTHER ONE.
--- NOTE | 2020-05-10 13:40 | Progress Note ---
DATE: 05/09/2020 Medicine Progress Note SUBJECTIVE: The patient is doing well today with no complaints. MRI of the right femur is still pending. Awaiting orthopedic recommendations. The patient still has some pain in the right lower extremity. OBJECTIVE: VITAL SIGNS: She was afebrile. Normotensive. Respiratory rate is good. LABORATORY DATA: Reviewed showed a white count of 13.5, hemoglobin 11.3, hematocrit was 34, and platelets of 179. Chemistries reviewed, found to be stable. MICROBIOLOGY: Urine cultures were negative. Gram stain and blood cultures are pending. PHYSICAL EXAMINATION: GENERAL: Not in acute distress. Alert and oriented x3. Cooperative on exam. PULMONARY: Clear to auscultation bilaterally. No wheezing, rales, or rhonchi. No crackles appreciated. CARDIOVASCULAR: Positive S1 and S2. No murmurs, rubs, or gallops. GI: Abdomen soft, nontender, and nondistended to palpation. Bowel sounds present. MUSCULOSKELETAL: She is very weak in the right lower extremity. The rest of extremities, she seems to have 5/5 strength. SKIN: Intact, warm to touch. Good cap refill. PSYCHIATRIC: Normal affect and mood. IMPRESSION: 1. Intractable right hip pain, concerns for underlying right hamstring injury. 2. Age-indeterminate compression fractures. 3. Multiple myeloma on chemotherapy. 4. Hypertension. PLAN: At this time, I am waiting for the MRI of the right femur for further evaluation and management. I am waiting for orthopedic recommendations as well. Hematology and Oncology were consulted for underlying multiple myeloma treatment. Continue with Lovenox for DVT prophylaxis. Add Toradol for anti-inflammatory properties. Get a.m. labs. Monitor very closely. Once again, the patient was seen and evaluated on 05/09/2020. MD GAL Krause/CONCEPCION /[id number]
--- NOTE | 2020-05-10 15:45 | NUR ---
NOTIFIED DR. WILLIS OF BLOOD CULTURE RESULTS OF POSITIVE COCCI IN CLUSTERS.
[2020-05-10] MEDS: ENOXAPARIN SOD INJ 40 MG/0.4 ML SYR SC SCH (16:03)
--- NOTE | 2020-05-10 16:15 | NUR ---
NOTIFIED DR. WILLIS THAT PATIENT'S TEMP IS 102.8. PER , CONSULT DR. ACUNA AND START PATIENT ON VANC 1GM Q12H.
[2020-05-10] MEDS: VANCOMYCIN 1GM/NS 250 ML 250 ML IV SCH (16:36)
--- NOTE | 2020-05-10 16:40 | NUR ---
UPON HELPING PATIENT TO SIT UP, NURSE NOTICED 2 SMALL BLISTERS ON RIGHT THIGH AREA. NOTIFIED DR. WILLIS, NO NEW ORDERS AT THIS TIME.
[2020-05-10] MEDS: KETOROLAC TROMETHAMINE 30 MG/ML VIAL IV SCH (18:00)
--- NOTE | 2020-05-10 18:24 | NUR ---
DR. ACUNA AWARE OF THE 2 BLISTERS NOTED TO RIGHT THIGH. NO NEW ORDERS AT THIS TIME.
[2020-05-10] MEDS: SODIUM CHLORIDE 0.9% 1000ML 1,000 ML IV SCH (18:30)
--- NOTE | 2020-05-10 19:17 | NUR ---
BEDSIDE SHIFT REPORT GIVEN TO ONCOMING NURSE. PATIENT IS RESTING IN BED, NO ACUTE DISTRESS NOTED AT THIS TIME. CALL LIGHT WITHIN REACH. BED IN THE LOWEST POSITION.
--- NOTE | 2020-05-10 20:18 | NUR ---
Received change of shift report from AM nurse. Walking rounds completed.
[2020-05-11] VITALS (7 sets, daily range): BP systolic 111–134; BP diastolic 55–92
[2020-05-11] MEDS: SODIUM CHLORIDE 0.9% 1000ML 1,000 ML IV SCH ×3 (04:00→21:18)
[2020-05-11] MEDS: VANCOMYCIN 1GM/NS 250 ML 250 ML IV SCH ×2 (04:17→16:26)
[2020-05-11] MEDS: KETOROLAC TROMETHAMINE 30 MG/ML VIAL IV SCH ×4 (05:28→18:02)
--- NOTE | 2020-05-11 07:20 | NUR ---
PATIENT IS AWAKE, ALERT, AND IN STABLE CONDITION WITH NO S/S OF RESPIRATORY DISTRESS. NO PAIN VOICED. PUREWICK AND DIAPER APPLIED. TELEMETRY APPLIED. IV FLUIDS INFUSING. BED ALARM APPLIED. CALL LIGHT IS WITHIN REACH- PATIENT INSTRUCTED TO CALL FOR ASSISTANCE NEEDED.
[2020-05-11] MEDS: LIDOCAINE 4% PATCH TP SCH (08:12)
[2020-05-11] MEDS: AMLODIPINE BESYLATE 5 MG TAB PO SCH (08:14)
[2020-05-11] MEDS: MONTELUKAST SODIUM 10 MG TAB PO SCH (08:14)
[2020-05-11] MEDS: LISINOPRIL 2.5 MG TAB PO SCH (08:14)
[2020-05-11] MEDS: ACYCLOVIR 200 MG CAP PO SCH ×2 (08:14→21:17)
[2020-05-11] MEDS: PANTOPRAZOLE SOD 40 MG TABEC PO SCH (08:14)
--- NOTE | 2020-05-11 09:04 | Progress Note ---
DATE: SUBJECTIVE: The patient reportedly is doing well today. Still has pain to the right lower extremity. Orthopedic recommendation was noted. No surgical intervention needed. A note was written in the chart. We also commented about the right hamstring he recommends following up in his office in three weeks time. Recommend physical therapy, pain control with followup in the office. The patient at bedside verbalized at the discussion that they had. Nursing staff present. OBJECTIVE: VITAL SIGNS: Temperature was 99.3. She had a T-max of 100.3. GENERAL: Not in acute distress. Alert and oriented x3. Cooperative on examination. PULMONARY: Clear to auscultation bilaterally. No wheezing, rales, or rhonchi. No crackles appreciated. CARDIOVASCULAR: Positive S1 and S2. No murmurs, rubs, or gallops. GI: Abdomen soft, nontender, and nondistended to palpation. Bowel sounds present. MUSCULOSKELETAL: She is very weak in the right lower extremity hamstring injury. NEUROLOGIC: Alert and oriented x3. SKIN: Intact, warm to touch. LABORATORY DATA: Labs show white count was 13, hemoglobin 11, hematocrit is 34, platelets of 179. Chemistry reviewed, stable. MICROBIOLOGY: Blood cultures 2/2 positive for gram-positive cocci in clusters. Urine cultures were found to be a contaminant. IMAGING STUDIES: Nothing new. IMPRESSION: 1. Intractable right hip pain, shows a complete right hamstring tear. 2. Age-indeterminate compression fractures, now with a TLSO brace. 3. Multiple myeloma, on chemotherapy. 4. Hypertension. 5. Fever, concerning for underlying infection. PLAN: At this time, I reviewed Orthopedic recommendation notes in the chart, as stated that her right hamstring injury, that shows complete tear, does not recommend any surgical intervention at this time. He recommends the patient followup in his office in 2 to 3 weeks time, in fact recommends pain control and physical therapy at this time. This is likely due to underlying multiple myeloma. At this time, from Orthopedic standpoint no further workup is needed during the hospital stay. We did get the TLSO brace for compression fractures. I did initiate IV vancomycin, in addition to Levaquin. She has significant amount of allergies. Repeat cultures with further labs have been ordered. ID consultation. Lovenox for DVT prophylaxis. Consultants: Ortho, ID, and Hematology/Oncology. MD GAL Krause/CONCEPCION /[id number]
[2020-05-11 09:29] LABS: BASOPHILS % 0.1 % (0.0-1.0); EOSINOPHILS % 0.2 % (0.0-6.0); HEMATOCRIT 31.5 % (34.2-44.1); HEMOGLOBIN 10.5 g/dL (12.0-16.0); LYMPHOCYTES # (AUTO) 0.3 (1.0-3.2); LYMPHOCYTES % 2.5 % (18.0-39.1); MEAN CORPUSCULAR HEMOGLOBIN 33.2 pg (28-32); MEAN CORPUSCULAR HGB CONC 33.3 g/dL (31-35); MEAN CORPUSCULAR VOLUME 99.7 fL (81-99); MONOCYTES # (AUTO) 0.8 (0.2-0.8); MONOCYTES % 6.8 % (4.4-11.3); NEUTROPHILS # (AUTO) 10.1 (2.1-6.9); PLATELET COUNT 209 x10e3/uL (140-360); RED BLOOD COUNT 3.16 x10e6/uL (3.6-5.1); RED CELL DISTRIBUTION WIDTH 15.1 % (11.7-14.4)
[2020-05-11 09:47] LABS: ANION GAP 9.4 mmol/L (8-16); BLOOD UREA NITROGEN 16 mg/dL (7-26); BUN/CREATININE RATIO 25 (6-25); CALCIUM 8.4 mg/dL (8.4-10.2); CARBON DIOXIDE 21 mmol/L (22-29); CHLORIDE 108 mmol/L (98-107); CREATININE, SERUM 0.65 mg/dL (0.57-1.11); EST GLOMERULAR FILTRATION RATE > 60 ML/MIN (60-); GLUCOSE 121 mg/dL (74-118); POTASSIUM 3.4 mmol/L (3.5-5.1); SODIUM 135 mmol/L (136-145)
[2020-05-11 11:14] LABS: LYMPHOCYTES % (MANUAL) 1 % (19-48); MONOCYTES % (MANUAL) 8 % (3.4-9.0); NEUTROPHILS % (MANUAL) 91 % (40-74)
[2020-05-11 11:15] LABS: BURR CELLS N; PLATELET ESTIMATE ADEQUATE; PLATELET MORPHOLOGY COMMENT NORMAL; RBC MORPHOLOGY COMMENT NORMAL
[2020-05-11] MEDS: LEVOFLOXACIN 500MG/D5W 100ML 100 ML IV SCH (12:18)
--- NOTE | 2020-05-11 14:44 | NUR ---
REVIEW OF SYSTEMS: Pertinent positive; right hip pain. The rest of 14-point review of systems have been reviewed with the patient and are negative. ALLERGIES: TO SULFA, KEFLEX, CODEINE, HYDROCODONE, IODINE, LATEX, MORPHINE, PROMETHAZINE, PROPOXYPHENE. HOME MEDICATIONS: Dexamethasone once a week, fluticasone, guaifenesin, neomycin, polymycin, Ambien, ascorbic acid, cholecalciferol, vitamin E, acyclovir, amlodipine, lisinopril, Singulair. MEDICAL HISTORY: Hypertension, multiple myeloma, on chemotherapy, breast cancer. PAST SURGICAL HISTORY: None. FAMILY HISTORY: Hypertension and diabetes. SOCIAL HISTORY: No drugs. No alcohol. Does not smoke. She is a former smoker. [id number]
[2020-05-11] MEDS: ACETAMINOPHEN 325 MG TAB PO PRN ×2 (15:31→21:58)
--- NOTE | 2020-05-11 15:35 | NUR ---
Patient noted walking with walker, slow and steady gate, daughter at side as standby assist and rolling IV. Patient tolerating ambulation well. Patient returned to sit up in chair but complained of uncomfortable sharp pain to groin and requested tylenol. Tylenol given. No other complaints at this time.
[2020-05-11] MEDS: ENOXAPARIN SOD INJ 40 MG/0.4 ML SYR SC SCH (16:26)
--- NOTE | 2020-05-11 17:57 | Progress Note ---
DATE: SUBJECTIVE: The patient has cellulitis of the thigh. The patient is an 79-year-old white female, who has history of multiple myeloma on chemotherapy, breast cancer, comes in with severe pain, right hip, started one day before. She says she had some fever with it, but she says she has two bullous lesions with clear liquids as I was asked to see her. The patient was admitted. She started pain medication. She is currently feeling better. PAST MEDICAL HISTORY: The patient who has history of hypertension, multiple myeloma, breast cancer. PAST SURGICAL HISTORY: As above. ALLERGIES: NKA. SOCIAL HISTORY: There is no smoking, drug abuse, or alcohol abuse. PHYSICAL EXAMINATION: GENERAL: She is currently alert, oriented, does not seem to be in acute distress. VITAL SIGNS: Stable, currently afebrile. HEENT: She is not icteric. NECK: Supple. CHEST: Clear. HEART: S1, S2. ABDOMEN: Soft, obese. EXTREMITIES: No edema. There is some induration of the right thigh. There are two bullous lesions with clear liquid. LABORATORY DATA: Blood cultures two sets growing gram-positive cocci. Her white count is 11.19, hemoglobin of 10, hematocrit 31. COVID was negative. Sodium 135, potassium 3.4, creatinine 0.35. IMPRESSION AND PLAN: Bacteremia, sepsis on admission. Continue vancomycin. Discontinue levofloxacin. Discontinue acyclovir. Await culture and sensitivity. She had CT scan, which was reviewed. She also has pneumonia on the left lower lobe. She had an MRI of the femur, which showed near-complete tear of the right hamstring. We will follow. MD HARSHIL Phan/CONCEPCION /[id number]
--- NOTE | 2020-05-11 19:07 | NUR ---
PATIENT IS SITTING UP IN THE RECLINER- IN STABLE CONDITION WITH NO S/S OF RESPIRATORY DISTRESS. NO PAIN VOICED. IV FLUIDS INFUSING. TELEMETRY APPLIED. DAUGHTER PRESENT IN ROOM. CALL LIGHT IS WITHIN REACH, PATIENT INSTRUCTED TO CALL FOR ASSISTANCE NEEDED. BEDSIDE SHIFT REPORT GIVEN TO ONCOMING NURSE.
--- NOTE | 2020-05-11 19:15 | NUR ---
Received the patient in report.sitting in the recyliner.aaox3.family member @bed side.call light within reach.instructed to call for assistance as needed.
--- NOTE | 2020-05-11 19:33 | NUR ---
RECEIVED OKAY FROM DR. ACUNA TO RESTART ACYCLOVIR FOR PATIENT. ORDER PLACED AND NIGHT NURSE INFORMED.
[2020-05-11] MEDS: MELATONIN 5 MG TABLET PO PRN (21:24)
[2020-05-12] VITALS (8 sets, daily range): BP systolic 115–137; BP diastolic 56–69
--- NOTE | 2020-05-12 01:34 | Progress Note ---
DATE: 05/11/2020 Medicine Progress Note SUBJECTIVE: The patient is doing much better today with no complaints. She did have a fever. T-max 100.6. She has no symptoms. PHYSICAL EXAMINATION: VITAL SIGNS: Temperature is 98, T-max 100.6, pulse 79, respiratory rate is 18, blood pressure 126/57, pulse oximetry 100% on room air. GENERAL: Not in acute distress, alert and oriented x3, cooperative on examination. HEENT: Head is normocephalic and atraumatic. Eyes; pupils are equal, round, and reactive to light bilaterally. Extraocular movements are intact bilaterally. Throat, no evidence of any erythema or exudates in the posterior pharynx. Has poor dentition. NECK: Supple. Good range of motion. PULMONARY: Clear to auscultation bilaterally. No wheezing, rales, or rhonchi. No crackles appreciated. CARDIOVASCULAR: Positive S1, S2. No murmurs, rubs, or gallops appreciated. ABDOMEN: Soft, nondistended, nontender to palpation. Bowel sounds present. MUSCULOSKELETAL: She has 4/5 strength throughout. LABORATORY FINDINGS: Show white count was 11, hemoglobin 10.1, hematocrit 31.5, platelets of 209. Chemistries reviewed, found to be stable. Urinalysis noted. Serologies, coronavirus not detected. MICROBIOLOGY: The patient did have 2/2 positive blood cultures. Urine cultures, no growth. Repeat blood cultures are pending. IMAGING STUDIES: Nothing new. IMPRESSION: 1. Intractable right hip pain with complete right hamstring tear. 2. Age-indeterminate compression fractures, now with a TLSO brace. 3. Multiple myeloma, on chemotherapy. 4. Hypertension. 5. Fever with 2/2 positive bacteremia. PLAN: At this time, follow orthopedic recommendations. No further workup. Follow up in 2 to 3 weeks. Continue with PT, OT, and pain control. She was found to have positive bacteremia. We will continue with IV antibiotics as per recommendations by ID. Discussed plan of care with the patient and consultants and they verbalized understanding. Continue with same plan of care. MD GAL Karuse/CONCEPCION /[id number]
--- NOTE | 2020-05-12 04:14 | NUR ---
Blood moustapha and sent to the lab.patient tolerated well.
[2020-05-12 04:16] LABS: BASOPHILS % 0.1 % (0.0-1.0); EOSINOPHILS # (AUTO) 0.1 (0.0-0.4); EOSINOPHILS % 1.3 % (0.0-6.0); HEMATOCRIT 29.6 % (34.2-44.1); HEMOGLOBIN 9.8 g/dL (12.0-16.0); LYMPHOCYTES # (AUTO) 0.5 (1.0-3.2); LYMPHOCYTES % 6.7 % (18.0-39.1); MEAN CORPUSCULAR HEMOGLOBIN 32.5 pg (28-32); MEAN CORPUSCULAR HGB CONC 33.1 g/dL (31-35); MONOCYTES % 13.1 % (4.4-11.3); NEUTROPHILS # (AUTO) 5.8 (2.1-6.9); NEUTROPHILS % 78.3 % (38.7-80.0); PLATELET COUNT 206 x10e3/uL (140-360); RED BLOOD COUNT 3.02 x10e6/uL (3.6-5.1); RED CELL DISTRIBUTION WIDTH 14.8 % (11.7-14.4)
[2020-05-12 04:37] LABS: ANION GAP 10.4 mmol/L (8-16); BLOOD UREA NITROGEN 17 mg/dL (7-26); BUN/CREATININE RATIO 27 (6-25); CALCIUM 7.8 mg/dL (8.4-10.2); CARBON DIOXIDE 18 mmol/L (22-29); CHLORIDE 110 mmol/L (98-107); CREATININE, SERUM 0.63 mg/dL (0.57-1.11); EST GLOMERULAR FILTRATION RATE > 60 ML/MIN (60-); GLUCOSE 104 mg/dL (74-118); POTASSIUM 3.4 mmol/L (3.5-5.1); SODIUM 135 mmol/L (136-145)
[2020-05-12] MEDS: VANCOMYCIN 1GM/NS 250 ML 250 ML IV SCH ×2 (05:16→16:26)
[2020-05-12] MEDS: KETOROLAC TROMETHAMINE 30 MG/ML VIAL IV SCH ×4 (06:00→14:18)
--- NOTE | 2020-05-12 07:16 | NUR ---
Bed side shift report given .stable condition.
[2020-05-12] MEDS: LIDOCAINE 4% PATCH TP SCH (09:00)
[2020-05-12] MEDS: ACYCLOVIR 200 MG CAP PO SCH ×2 (09:10→16:26)
[2020-05-12] MEDS: PANTOPRAZOLE SOD 40 MG TABEC PO SCH (09:10)
[2020-05-12] MEDS: AMLODIPINE BESYLATE 5 MG TAB PO SCH (09:10)
[2020-05-12] MEDS: LISINOPRIL 2.5 MG TAB PO SCH (09:10)
[2020-05-12] MEDS: MONTELUKAST SODIUM 10 MG TAB PO SCH (09:10)
--- NOTE | 2020-05-12 09:10 | Progress Note ---
DATE: SUBJECTIVE: The patient is seen and evaluated. Available labs and notes reviewed. Nursing assisting staff in the room. REVIEW OF SYSTEMS: No nausea, vomiting, fever, chills, chest pain, shortness of breath, headache, rash, dysuria. PHYSICAL EXAMINATION: VITAL SIGNS: Temperature 97.9, pulse is 80, respiration 18, and blood pressure 115/56. GENERAL: Awake and alert. No acute distress. CVS: S1, S2. CHEST: Equal expansion. Clear to auscultation. No acute distress. ABDOMEN: Soft. No tenderness. No distention. HEENT: Moist. No pallor. No JVD. EXTREMITIES: Weak. Right hip blister noted. MEDICATIONS: Medication is reviewed from ID point of view. The patient is on vancomycin IV and acyclovir. LABORATORY STUDIES: White count of 7.46 improved, hemoglobin 9.8, platelet 206. Sodium 135, potassium 3.4, creatinine 0.63, vancomycin trough 13. COVID-19 PCR negative on 05/09/2020. MICROBIOLOGY: Recheck blood culture pending. Previous blood culture showed Staphylococcus aureus, pending identification sensitivity. CT of the pelvis showed no acute finding. ASSESSMENT AND PLAN: 1. Bacteremia. 2. Left lower lobe pneumonia. 3. Near-complete tear of right hamstring. 4. Debility. 5. Continue on vancomycin IV, stop acyclovir. Follow with blood culture. Clinically, no acute distress. Further management of this patient is based on daily findings on laboratory and physical examination. Discussed with Dr. Elmore in details. Please refer to chart for more information. Dictated by Manish Smith PA-C (Al) Kaye Elmore MD /MODL /[id number]
[2020-05-12] MEDS: SODIUM CHLORIDE 0.9% 1000ML 1,000 ML IV SCH (16:26)
[2020-05-12] MEDS: ENOXAPARIN SOD INJ 40 MG/0.4 ML SYR SC SCH (16:26)
[2020-05-12] MEDS ORDERED: FUROSEMIDE INJ 10 MG/ML 2 ML VIAL IV ONE (16:45)
[2020-05-12] MEDS: ACETAMINOPHEN 325 MG TAB PO PRN (19:34)
[2020-05-13] VITALS (7 sets, daily range): BP systolic 106–137; BP diastolic 52–73
--- NOTE | 2020-05-13 00:18 | Progress Note ---
DATE: 05/12/2020 SUBJECTIVE: The patient is doing much better today with no complaints. No overnight events. She is afebrile. PHYSICAL EXAMINATION: VITAL SIGNS: Temperature is 98, pulse 82, respirations is 18, blood pressure 122/60, pulse ox 100% on room air. GENERAL: No acute distress. Alert and oriented x3. Cooperative on examination. HEENT: Normocephalic, atraumatic. Eyes, pupils are equal, round, and reactive to light bilaterally. Extraocular muscles are intact. NECK: Supple. Good range of motion. Throat, no evidence of erythema or exudates in the posterior pharynx. Has poor dentition. PULMONARY: Clear to auscultation bilaterally. No wheezing, rales, or rhonchi. No crackles appreciated. CARDIOVASCULAR: Positive S1, S2. No murmurs, rubs, or gallops. ABDOMEN: Soft, nondistended, nontender to palpation. Bowel sounds present. MUSCULOSKELETAL: Strength is 5/5 throughout. No evidence of any muscle deficits on examination. SKIN: Intact. Warm to touch. Good cap refill. PSYCHIATRIC: Normal affect and mood. EXTREMITIES: No edema. Good range of motion throughout. LABORATORY DATA: Show white count was 7.4, hemoglobin 9.8, hematocrit is 29.6, platelets of 206. Chemistry; sodium was 135, potassium 3.4, chloride 110, bicarb 18, anion gap of 10, BUN 17, creatinine 0.63. Coronavirus not detected. MICROBIOLOGY: Shows 2/2 Staphylococcus aureus, seems to be MSSA, which I will confirm with Infectious Disease. Repeat blood culture shows no growth. IMAGING STUDIES: Nothing new. IMPRESSION: 1. Intractable right hip pain, incomplete right hamstring tear. 2. Age-indeterminate compression fractures. No TLSO brace. 3. Multiple myeloma, on chemotherapy. 4. Hypertension. 5. Fever with Staphylococcus aureus bacteremia 2/2. PLAN: At this time, pain is well controlled. She is working with PT and OT. Orthopedic recommendations noted. The patient will need to follow up as an outpatient in 2 to 3 weeks in our office. As per her bacteremia, she is on IV vancomycin. I will need to defer this to ID to see if this is likely to be a true bacteremia as it does not show any evidence of coag-negative Staph. The patient is immunosuppressed on chemotherapy and will likely need further antibiotic therapy as an outpatient. On any rate, the patient is not ready for discharge at this time. White count has improved. Talk with ID. Loriegonsalo for deep venous thrombosis prophylaxis. Continue following plan of care with the rest of the consultants. The patient has improved. MD GAL Krause/CONCEPCION /[id number]
[2020-05-13] MEDS: ACETAMINOPHEN 325 MG TAB PO PRN ×3 (02:15→21:03)
--- NOTE | 2020-05-13 02:55 | NUR ---
Medicated with tylenol 650 mg po.resting in the bed.no resp.distress noted.call light within reach.instructed to call for assistance as needed.
[2020-05-13] MEDS ORDERED: PREDNISONE 20 MG TAB PO ONE ×3 (03:00→21:00)
[2020-05-13] MEDS: VANCOMYCIN 1GM/NS 250 ML 250 ML IV SCH ×2 (05:21→17:49)
[2020-05-13 06:01] LABS: ALANINE AMINOTRANSFERASE 14 IU/L (0-55); ALBUMIN/GLOBULIN RATIO 0.5 (0.8-2.0); ALKALINE PHOSPHATASE 57 IU/L (40-150); ANION GAP 9.3 mmol/L (8-16); BLOOD UREA NITROGEN 11 mg/dL (7-26); BUN/CREATININE RATIO 18 (6-25); CALCIUM 7.7 mg/dL (8.4-10.2); CARBON DIOXIDE 20 mmol/L (22-29); CHLORIDE 110 mmol/L (98-107); CREATININE, SERUM 0.62 mg/dL (0.57-1.11); EST GLOMERULAR FILTRATION RATE > 60 ML/MIN (60-); GLUCOSE 102 mg/dL (74-118); POTASSIUM 3.3 mmol/L (3.5-5.1); SODIUM 136 mmol/L (136-145)
--- NOTE | 2020-05-13 06:50 | NUR ---
Bed side shift report given to oncoming rn.stable condition.
--- NOTE | 2020-05-13 07:09 | Progress Note ---
DATE: SUBJECTIVE: The patient is seen and evaluated. Discussed with Dr. Elmore. Discussed with the nurse. Uneventful night. REVIEW OF SYSTEMS: No nausea, vomiting, fever, headache, chest pain, shortness of breath, or cough. LABORATORY STUDIES: White count 7.46, hemoglobin 9.8. Recheck BMP is pending. No new CBC available. MICROBIOLOGY: MSSA in the blood on 05/09 with recheck on 05/11 is negative so far. RADIOLOGY STUDIES: No new radiology studies available. OBJECTIVE: VITAL SIGNS: Temperature 98.6, pulse 83, respirations 20, blood pressure 106/52. GENERAL: Awake and alert, in no acute distress. CV: S1, S2. CHEST: Equal expansion. Clear to auscultation. No acute distress. HEENT: Moist. No pallor. No JVD. EXTREMITIES: Weak. ASSESSMENT AND PLAN: 1. MSSA bacteremia. 2. Left lower lobe pneumonia. 3. Debility. 4. Near-complete tear of the right hamstring. 5. Hypertension. 6. The patient is currently on vancomycin. Recheck of blood culture as mentioned above is negative. Acyclovir was stopped on 05/12/2020. The patient has multiple allergies. Further management of this patient is based on daily finding on laboratory and physical examination. Discussed with Dr. Elmore and complete list of allergies noted. Creatinine seems to be within normal limit. Please refer to the chart for more information. Dictated by Manish Smith PA-C (Al) Kaye Elmore MD /MODL /[id number]
[2020-05-13] MEDS: LIDOCAINE 4% PATCH TP SCH (09:00)
[2020-05-13] MEDS: MONTELUKAST SODIUM 10 MG TAB PO SCH (10:10)
[2020-05-13] MEDS: AMLODIPINE BESYLATE 5 MG TAB PO SCH (10:10)
[2020-05-13] MEDS: PANTOPRAZOLE SOD 40 MG TABEC PO SCH (10:10)
[2020-05-13] MEDS: LISINOPRIL 2.5 MG TAB PO SCH (10:10)
[2020-05-13] MEDS: ACYCLOVIR 200 MG CAP PO SCH ×2 (10:10→17:48)
[2020-05-13] MEDS: ENOXAPARIN SOD INJ 40 MG/0.4 ML SYR SC SCH (17:48)
[2020-05-13] MEDS: MELATONIN 5 MG TABLET PO PRN (21:02)
[2020-05-14] VITALS (8 sets, daily range): BP systolic 130–144; BP diastolic 64–84
[2020-05-14] MEDS ORDERED: PREDNISONE 20 MG TAB PO ONE ×2 (03:00→09:00)
[2020-05-14] MEDS: ACETAMINOPHEN 325 MG TAB PO PRN (04:01)
[2020-05-14] MEDS: VANCOMYCIN 1GM/NS 250 ML 250 ML IV SCH ×2 (04:52→17:36)
--- NOTE | 2020-05-14 07:00 | NUR ---
Received patient resting in bed no s/s of distress. Bed low, wheels locked, side rails x2. Call light in reach will continue to monitor patient.
[2020-05-14] MEDS: LIDOCAINE 4% PATCH TP SCH (07:51)
[2020-05-14] MEDS: PANTOPRAZOLE SOD 40 MG TABEC PO SCH (07:55)
[2020-05-14] MEDS: ACYCLOVIR 200 MG CAP PO SCH ×2 (07:55→17:36)
[2020-05-14] MEDS: LISINOPRIL 2.5 MG TAB PO SCH (07:55)
[2020-05-14] MEDS: MONTELUKAST SODIUM 10 MG TAB PO SCH (07:55)
[2020-05-14] MEDS: AMLODIPINE BESYLATE 5 MG TAB PO SCH (07:55)
[2020-05-14] MEDS ORDERED: POTASSIUM CHLORIDE 20 MEQ TAB CR PO ONE (08:00)
[2020-05-14] MEDS ORDERED: DIPHENHYDRAMINE HCL 25 MG CAP PO ONE (09:00)
[2020-05-14] MEDS ORDERED: SODIUM CHLORIDE 0.9% 50ML 50 ML ONE (09:12)
[2020-05-14] MEDS ORDERED: IOPAMIDOL 370 MG/ML 200 ML INFUS..BTL INJ ONE (09:12)
--- NOTE | 2020-05-14 10:37 | Progress Note ---
DATE: 05/13/2020 Medicine Progress Note SUBJECTIVE: The patient is doing well today. I spoke with the patient's daughter about her having her MSSA bacteremia. The etiology of the bacteremia is unknown. This is a true infection. Spoke with ID. OBJECTIVE: VITAL SIGNS: She is afebrile. Normotensive. Respiratory rate is good. GENERAL: In no acute distress. Alert and oriented x3. Cooperative on examination. PULMONARY: Clear to auscultation bilaterally. No wheezing, rales, or rhonchi. No crackles appreciated. CARDIOVASCULAR: Positive S1, S2. No murmurs, rubs or gallops appreciated. ABDOMEN: Soft, nondistended, nontender to palpation. Bowel sounds present. MUSCULOSKELETAL: Strength is 5/5 throughout. No evidence of any muscle deficits on examination. SKIN: Intact, warm to touch. Good capillary refill. PSYCHIATRIC: Normal affect and mood. EXTREMITIES: No edema. Good range of motion throughout. LABORATORY DATA: Show white count 7.4, hemoglobin 9.8, hematocrit 29.6, platelets of 206. Chemistry; sodium 136, potassium 3.3, chloride 110, bicarb 20, anion gap of 9.3, BUN is 11, creatinine 0.62. Blood cultures 2/2 shows MSSA bacteremia. Repeat blood cultures, no growth today. IMAGING STUDIES: Lower extremity venous Doppler, there is no evidence of venous thrombosis in the visualized veins. IMPRESSION: 1. Intractable right hip pain, complete right hamstring tear. 2. Age-indeterminate compression fractures with TLSO brace. 3. Multiple myeloma on chemotherapy. 4. Hypertension. 5. MSSA bacteremia with underlying fever. PLAN: At this time, the patient will maintain on antibiotics as per ID recommendations. I spoke with ID and they have agreed to get a garcia CT including a 2D echo, which has been ordered. The patient apparently has an iodine contrast allergy, which we do have premedications in which we discussed this with the patient and she has agreed to premedications before having any CT scan. She understands the risks involved and she is okay with having a CT scan with IV contrast. We will continue with antibiotics as per ID recommendations. She will likely use antibiotics for long-term as an outpatient. Continue same plan of care and monitor very closely. Consultants are following. Jiries S Dahu, MD JSD/CONCETTAL /[id number]
--- NOTE | 2020-05-14 11:02 | Diagnostic Imaging Report ---
EXAM: CT Chest, Abdomen and Pelvis WITH contrast INDICATION: ^bacteremia, r/o infection ^[id number] ^0950 COMPARISON: CT of the pelvis on 05/09/2020. TECHNIQUE: Chest, abdomen and pelvis were scanned utilizing a multidetector helical scanner from the lung apex to the pubic symphysis after administration of IV contrast. Coronal and sagittal reformations were obtained. Routine protocol was performed. Scan was performed when during portal venous phase. IV CONTRAST: 100 mL of Isovue 370 ORAL CONTRAST: None COMPLICATIONS: None RADIATION DOSE: Total DLP: 712 mGy*cm Estimated effective dose: (DLP x 0.015 x size factor) mSv CTDIvol has been reviewed. It is below the limits set by the Radiation Protocol Committee (RPC). Dose modulation, iterative reconstruction, and/or weight based adjustment of the mA/kV was utilized to reduce the radiation dose to as low as reasonably achievable. FINDINGS: LINES and TUBES: None. LUNGS AND AIRWAYS: The lungs are unremarkable. Airways are normal. PLEURA: There is small left and trace right pleural effusion with superimposed bibasilar atelectasis. HEART AND MEDIASTINUM: The thyroid gland is normal. No mediastinal, hilar or axillary lymphadenopathy. The heart is normal in size. There is no pericardial effusion. There are significant atherosclerotic calcifications in the coronary arteries. HEPATOBILIARY: The liver is diffuse hypodense compared to the spleen, consistent with diffuse hepatic diffuse hepatic steatosis. No focal hepatic lesions. No biliary ductal dilation. GALLBLADDER: No radio-opaque stones or sludge. No wall thickening. SPLEEN: No splenomegaly. PANCREAS: No focal masses or ductal dilatation. ADRENALS: No adrenal nodules KIDNEYS/URETERS: Kidneys enhance symmetrically. No hydronephrosis. There are left parapelvic cysts. No solid mass. No stones. GI TRACT: There is diffuse to compressive thickening and hyperenhancement of the gastric davis. Otherwise no abnormal distention, wall thickening, or evidence of bowel obstruction. There are diverticula within the colon without evidence of diverticulitis. Appendix is not clearly identified. There is however no fat stranding or adenopathy in the right lower quadrant to suggest appendicitis. PELVIC ORGANS/BLADDER: Unremarkable. LYMPH NODES: No lymphadenopathy. VESSELS: Unremarkable. PERITONEUM / RETROPERITONEUM: There is diffuse stranding of the mesenteric fat. No free air or free fluid. BONES: There are severe degenerative changes in the spine. There are superior endplate indentation of the L2 and L3 vertebral bodies which most likely represent Schmorl's nodes. Chronic T9 compression fracture status post vertebroplasty. Degenerative grade 1 retrolisthesis of L4 on L5 status post posterior spinal fusion. There are multiple lytic lesions throughout the bones. SOFT TISSUES: There is diffuse anarsarca. There is right inguinal hernia which contains a short loop of small bowel. No evidence of bowel strangulation. IMPRESSION: 1. Circumferential thickening of the gastric wall which may be due to underdistention or mild gastritis. 2. Small left and trace right pleural effusion with superimposed bibasilar atelectasis. 3. Anasarca and stranding of the mesenteric fat, suggestive of fluid overload state and/or diffuse inflammation. 4. Superior endplate indentation of the L2 and L3 vertebral bodies which most likely represents Schmorl's nodes and less likely fractures. Correlate with point tenderness and history of falls. 5. Lytic lesions throughout the bones compatible with patient's known history of multiple myeloma. Signed by: Ghanshyam Landry MD on 05/14/2020 10:59 AM
[2020-05-14] MEDS ORDERED: DEXAMETHASONE 4 MG TAB PO NR (13:00)
--- NOTE | 2020-05-14 13:31 | NUR ---
Nutrition Screen Note RD Recommendation for Physician: Continue diet as ordered Plan of Care: RD following, monitoring for tolerance and adequacy Nutrition reason for involvement: LOS Primary Diagnose(s): Intractable right hip pain PMH: Multiple myeloma, breast cancer, chemo, HTN Ht:63 in Wt:152.5lb BMI:27 kg/m2 IBW:115lb RD Assessment: (05/14/2020) Chart reviewed. Labs and meds reviewed. Initial encounter with patient. Pt is eating about half of meal tray and shares the other half with a family member. Pt denies any difficulty chewing or swallowing. Pt denies having any nausea, vomiting or diarrhea. No known food allergies. The Pt can feed herself. Current Diet: Cardiac diet Malnutrition Evaluation (05/14/20) The patient does not meet criteria for a specified degree of malnutrition at this time. Will re-evaluate at follow-up as appropriate. Diet Education Needs Assessment: Diet education not indicated. Nutrition Care Level: Sudhakar Juarez RD, LD, CNSC
--- NOTE | 2020-05-14 16:07 | NUR ---
Report given to SABA HALEY.
--- NOTE | 2020-05-14 16:16 | NUR ---
PATIENT SITTING AT BED SIDE TALKING ON THE PHONE, NO COMPLAIN VOICED. ALL PERSONAL ITEMS CLOSE TO PATIENT. CALL LIGHT AT REACH.
--- NOTE | 2020-05-14 16:34 | Progress Note ---
DATE: 05/14/2020 Medicine Progress Note SUBJECTIVE: The patient is doing well today with no complaints. No overnight events. PHYSICAL EXAMINATION: VITAL SIGNS: Temperature is 97.7, pulse is 83, respiratory rate is 18, blood pressure 130/70, pulse ox 97% on room air. GENERAL: Not in acute distress, alert and oriented x3, cooperative on examination. HEENT: Head is normocephalic, atraumatic. Eyes; pupils are equal, round, and reactive to light bilaterally. PULMONARY: Clear to auscultation bilaterally. No wheezing, rales, or rhonchi. No crackles appreciated. CARDIOVASCULAR: Positive S1, S2. No murmurs, rubs, or gallops. ABDOMEN: Soft, nondistended, nontender to palpation. Bowel sounds present. MUSCULOSKELETAL: Strength 5/5 throughout. NEUROLOGICAL: She is alert, awake, and oriented x3. LABORATORY FINDINGS: White count 7.4, hemoglobin 9.8, hematocrit 29.6, platelets of 206,000. Chemistry; sodium 136, potassium 3.3, chloride 110, bicarb 20, anion gap of 9.3, BUN is 11, creatinine 0.62. MICROBIOLOGY: Repeat blood culture shows no growth to date. MSSA bacteremia on the original blood cultures on admission. Physical exam under. IMAGING STUDIES: CT chest, abdomen and pelvis shows circumferential wall thickening of the gastric wall, which may be due to underdistention or chronic gastritis. Small left and trace right pleural effusion with superimposed bibasilar atelectasis. Anasarca stranding on the fast mesenteric fat suggestive of fluid overload state and diffuse inflammation. There is superior endplate indentation of L2-L3 vertebral height will be most likely represent some notes less likely fracture . Lytic lesions throughout the bones compatible with patient's known history of multiple myeloma. IMPRESSION: 1. Intractable right hip pain with complete right hamstring tear-improved. 2. Age-indeterminate compression fracture with TLSO brace. 3. Multiple myeloma on chemotherapy. 4. Hypertension. 5. Sepsis with MSSA bacteremia with underlying fever. PLAN: At this time, from ortho standpoint, she can follow up as an outpatient. She will follow up with Orthopedics in 2-3 weeks in their office. As for the CT chest, abdomen and pelvis it was noted, I will review this with ID as well. She had no allergies to the contrast that was given. Continue with IV antibiotics as per ID recommendations. She will need a PICC line, which I will go ahead and order. She will need some linked up therapy, which I will discuss this with ID as well. I am waiting on a 2D echo results to be read. This will be very helpful. Continue working with PT/OT. She is on Lovenox for DVT prophylaxis. The patient wanted her dexamethasone 40 mg that she gets once a week from her oncologist, which is due today, which I already ordered the dexamethasone that she wants 40 mg p.o. x1 and which she gets q. weekly. I have discussed the plan of care with the patient, patient's daughter, and nursing staff. MD GAL Krause/CONCEPCION /[id number]
--- NOTE | 2020-05-14 17:01 | NUR ---
SPOKE WITH MD REGARDING ABNORMAL LAB RESULT. NO NEW ORDER RECEIVED.
[2020-05-14] MEDS: ENOXAPARIN SOD INJ 40 MG/0.4 ML SYR SC SCH (17:36)
--- NOTE | 2020-05-14 19:33 | NUR ---
Patient refused bed alarm.
--- NOTE | 2020-05-14 19:36 | NUR ---
INFECTIOUS DISEASE PROGRESS NOTE DR. MARYLOU ACUNA SUBJECTIVE: The patient is seen and evaluated. Discussed with Dr. Acuna. Discussed with the nurse. Uneventful night. REVIEW OF SYSTEMS: No nausea, vomiting, fever, headache, chest pain, shortness of breath, or cough. LABORATORY STUDIES: White count 7.46, hemoglobin 9.8. Recheck BMP is pending. No new CBC available. MICROBIOLOGY: MSSA in the blood on 05/09 with recheck on 05/11 is negative so far. RADIOLOGY STUDIES: No new radiology studies available. OBJECTIVE: VITAL SIGNS: per chart GENERAL: Awake and alert, in no acute distress. CV: S1, S2. no S3, s4 CHEST: Equal expansion. Clear to auscultation. No acute distress. HEENT: Moist. No pallor. No JVD. EXTREMITIES: Weak. ASSESSMENT AND PLAN: 1. MSSA bacteremia. 2. Left lower lobe pneumonia. 3. Debility. 4. Near-complete tear of the right hamstring. 5. Hypertension. on Acyclovir and Vanc Vanc x6 weeks for MSSA bacteremia, allergic to PCN CM to arrange IV ABT Vancomycin 1gm q12h x6 weeks weekly CBC, CMP, Vanc Trough faxed to [phone] Marylou Acuna M.D
[2020-05-15] VITALS (8 sets, daily range): BP systolic 132–142; BP diastolic 62–84
[2020-05-15] MEDS: MELATONIN 5 MG TABLET PO PRN (00:40)
[2020-05-15] MEDS: VANCOMYCIN 1GM/NS 250 ML 250 ML IV SCH ×2 (04:53→16:25)
[2020-05-15 06:41] LABS: HEMOGLOBIN 9.8 g/dL (12.0-16.0)
--- NOTE | 2020-05-15 07:00 | NUR ---
Received patient resting in bed no s/s of distress. Bed low, wheels locked, side rails x2. Call light in reach will continue to monitor patient.
[2020-05-15 07:07] LABS: ALANINE AMINOTRANSFERASE 19 IU/L (0-55); ALBUMIN 2.2 g/dL (3.5-5.0); ALBUMIN/GLOBULIN RATIO 0.5 (0.8-2.0); ALKALINE PHOSPHATASE 48 IU/L (40-150); ANION GAP 9.5 mmol/L (8-16); BLOOD UREA NITROGEN 15 mg/dL (7-26); BUN/CREATININE RATIO 27 (6-25); CALCIUM 8.1 mg/dL (8.4-10.2); CARBON DIOXIDE 23 mmol/L (22-29); CHLORIDE 110 mmol/L (98-107); CREATININE, SERUM 0.56 mg/dL (0.57-1.11); EST GLOMERULAR FILTRATION RATE > 60 ML/MIN (60-); GLUCOSE 162 mg/dL (74-118); POTASSIUM 3.5 mmol/L (3.5-5.1); SODIUM 139 mmol/L (136-145)
[2020-05-15] MEDS ORDERED: FUROSEMIDE INJ 10 MG/ML 4 ML VIAL IV ONE (08:30)
[2020-05-15] MEDS: LIDOCAINE 4% PATCH TP SCH (08:37)
[2020-05-15] MEDS: ACYCLOVIR 200 MG CAP PO SCH ×2 (08:40→16:25)
[2020-05-15] MEDS: PANTOPRAZOLE SOD 40 MG TABEC PO SCH (08:40)
[2020-05-15] MEDS: AMLODIPINE BESYLATE 5 MG TAB PO SCH (08:40)
[2020-05-15] MEDS: LISINOPRIL 2.5 MG TAB PO SCH (08:40)
[2020-05-15] MEDS: MONTELUKAST SODIUM 10 MG TAB PO SCH (08:40)
[2020-05-15] MEDS ORDERED: FUROSEMIDE INJ 10 MG/ML 4 ML VIAL IV NR (16:45)
--- NOTE | 2020-05-15 19:42 | Progress Note ---
DATE: 05/15/2020 Medicine Progress Note SUBJECTIVE: The patient is doing well today with no complaints. She was sitting on the side of the bed in the chair with no issues. I spoke with ID, recommends IV antibiotics for home. PICC line has been ordered. I do not know the duration of therapy, in which she will notify me with that results. PHYSICAL EXAMINATION: VITAL SIGNS: Temperature is 97.8, pulse 90, respiratory rate is 19, blood pressure is 136/79, pulse ox 99% on room air. GENERAL: Not in acute distress. Alert and oriented x3. Cooperative on exam. PULMONARY: Clear to auscultation bilaterally. No wheezing, rales, or rhonchi. no crackles appreciated. CARDIOVASCULAR: Positive S1 and S2. No murmurs, rubs, or gallops appreciated. ABDOMEN: Soft, nondistended, nontender to palpation. Bowel sounds present. MUSCULOSKELETAL: Strength 5/5 throughout. NEUROLOGICAL: Alert and oriented x3. SKIN: Intact, warm to touch. PSYCHIATRIC: Normal affect and mood. LABORATORY FINDINGS: Show white count was 7.4, hemoglobin is 9.8, hematocrit is 29, and her platelets is 206. Chemistry reviewed; sodium 139, potassium 3.5, chloride 110, bicarb 23, anion gap of 9.5, BUN is 15, creatinine 0.56, and her calcium is 8.1. BNP 266. Albumin was 2.2. Urinalysis noted. SEROLOGY: Coronavirus nondetected. MICROBIOLOGY: Repeat blood cultures no growth. Initial blood culture showed MSSA bacteremia. IMAGING STUDIES: CT imaging was noted from yesterday. Lower extremity venous Doppler showed no evidence of any DVT. IMPRESSION: 1. Intractable right hip pain with complete right hamstring tear-improved. 2. Age-indeterminate compression fracture with TLSO brace, much improved. 3. Multiple myeloma, on chemotherapy. 4. Hypertension. 5. Sepsis with methicillin-sensitive Staphylococcus aureus bacteremia. PLAN: At this time per Orthopedics, no further workup. In 2 to 3 weeks, to follow up in their office. Outpatient PT/OT evaluation. I spoke with ID, they recommend a PICC line and IV antibiotics for home. ID will try to arrange antibiotics in the office if possible. If not, it will likely be performed via home health with her insurance company. As for the 2D echo, it is still pending the final results. Lovenox for DVT prophylaxis. Consultants: Orthopedics and Infectious Disease. Plan of care discussed with the patient, the patient's daughter, and nursing staff. Hopefully, the patient can be discharged home soon and she is eager to being discharged. MD GAL Krause/CONCEPCION /[id number]
--- NOTE | 2020-05-15 21:49 | NUR ---
INFECTIOUS DISEASE PROGRESS NOTE DR. MARYLOU ACUNA SUBJECTIVE: The patient is seen and evaluated. Discussed with Dr. Acuna. Discussed with the nurse. Uneventful night. REVIEW OF SYSTEMS: No nausea, vomiting, fever, headache, chest pain, shortness of breath, or cough. LABORATORY STUDIES: White count 7.46, hemoglobin 9.8. Recheck BMP is pending. No new CBC available. MICROBIOLOGY: MSSA in the blood on 05/09 with recheck on 05/11 is negative so far. RADIOLOGY STUDIES: No new radiology studies available. OBJECTIVE: VITAL SIGNS: per chart GENERAL: Awake and alert, in no acute distress. CV: S1, S2. no S3, s4 CHEST: Equal expansion. Clear to auscultation. No acute distress. HEENT: Moist. No pallor. No JVD. EXTREMITIES: Weak. ASSESSMENT AND PLAN: 1. MSSA bacteremia. 2. Left lower lobe pneumonia. 3. Debility. 4. Near-complete tear of the right hamstring. 5. Hypertension. on Acyclovir and Vanc -acyclovir for life per her PCP, pt refuses to stop medication Vanc x6 weeks for MSSA bacteremia, allergic to PCN CM to arrange IV ABT Vancomycin 1gm q12h x6 weeks weekly CBC, CMP, Vanc Trough faxed to [phone] Repeat blood cultures on week 6 of IV ABT Marylou Acuna M.D
[2020-05-16] VITALS (8 sets, daily range): BP systolic 137–168; BP diastolic 57–83
[2020-05-16] MEDS: ACETAMINOPHEN 325 MG TAB PO PRN ×3 (00:11→20:36)
--- NOTE | 2020-05-16 00:16 | Diagnostic Imaging Report ---
EXAMINATION: CHEST XRAY LINE PLACEMENT INDICATION: ^PICC line placement ^[id number] ^[id number] COMPARISON: 05/09/2020 FINDINGS: AP view TUBES and LINES: Right PICC with tip projecting over inferior SVC. LUNGS: Lungs are well inflated. Pulmonary vascular congestion and mild interstitial edema. PLEURA: Small left and trace right pleural effusions. HEART AND MEDIASTINUM: The cardiomediastinal silhouette is unremarkable. BONES AND SOFT TISSUES: No acute osseous lesion. Left axillary surgical clips. UPPER ABDOMEN: No free air under the diaphragm. IMPRESSION: Right PICC in place with tip projecting over inferior SVC. No pneumothorax. Redemonstration of pulmonary vascular congestion, mild additional edema, and small bilateral pleural effusions (left greater than right). Signed by: Dr. Saul Swartz MD on 05/16/2020 12:13 AM
[2020-05-16] MEDS: MELATONIN 5 MG TABLET PO PRN (00:55)
[2020-05-16] MEDS ORDERED: SODIUM CHLORIDE 0.9% 250ML 250 ML ONE (05:30)
[2020-05-16] MEDS: VANCOMYCIN 1GM/NS 250 ML 250 ML IV SCH (05:31)
--- NOTE | 2020-05-16 07:15 | NUR ---
Bedside report and walking rounds completed with on coming nurse. Patient in bed with call light within reach. Bed in locked and lowest position. No issues or concerns noted. Patient updated on POC.
[2020-05-16] MEDS: LIDOCAINE 4% PATCH TP SCH (09:00)
[2020-05-16] MEDS: LISINOPRIL 2.5 MG TAB PO SCH (09:03)
[2020-05-16] MEDS: ACYCLOVIR 200 MG CAP PO SCH ×2 (09:03→17:43)
[2020-05-16] MEDS: PANTOPRAZOLE SOD 40 MG TABEC PO SCH (09:03)
[2020-05-16] MEDS: MONTELUKAST SODIUM 10 MG TAB PO SCH (09:03)
[2020-05-16] MEDS: AMLODIPINE BESYLATE 5 MG TAB PO SCH (09:03)
[2020-05-16] MEDS ORDERED: ONDANSETRON HCL 4 MG ORAL DISINTEGRATING TAB PO PRN (14:45)
--- NOTE | 2020-05-16 15:08 | NUR ---
Spoke with Dr. Mason who states that Dr. Elmore is arrange abx thru his office. Pt will discharge once abx arranged. CM spoke to Dr. Elmore. States not approved yet, but should have answer by tomorrow.
--- NOTE | 2020-05-16 15:29 | NUR ---
patient resting in bed, ambulated on [address] earlier , no distress, picc line is intact
--- NOTE | 2020-05-16 17:33 | NUR ---
Notified DR Elmore regarding Vanco Trough 18.2, New order to give Vancomycin 1gm IV Q24H
--- NOTE | 2020-05-16 19:22 | NUR ---
RECEIVED CHANGE OF SHIFT REPORT FROM AM NURSE. WALKING ROUNDS COMPLETED.
--- NOTE | 2020-05-17 | NUR ---
Patient up ambulating in room with no c/o at this time. Patient BP at 168. Patient back in bed and recheck is 136. Continue monitor patient for changes in BP.
[2020-05-17 00:26] VITALS: BP 136/66
[2020-05-17] MEDS: ACETAMINOPHEN 325 MG TAB PO PRN ×2 (02:22→13:03)
--- NOTE | 2020-05-17 05:22 | NUR ---
Patient resting quitly in bed with no c/o at this time. Continue monitor.
[2020-05-17 05:47] VITALS: BP 150/56
[2020-05-17 08:17] VITALS: BP 157/89
[2020-05-17 08:43] VITALS: BP 157/89
[2020-05-17] MEDS: LIDOCAINE 4% PATCH TP SCH (09:00)
[2020-05-17] MEDS ORDERED: VANCOMYCIN 1GM/NS 250 ML 250 ML IV SCH (09:00)
[2020-05-17] MEDS: PANTOPRAZOLE SOD 40 MG TABEC PO SCH (09:03)
[2020-05-17] MEDS: AMLODIPINE BESYLATE 5 MG TAB PO SCH (09:04)
[2020-05-17] MEDS: MONTELUKAST SODIUM 10 MG TAB PO SCH (09:05)
[2020-05-17] MEDS: LISINOPRIL 2.5 MG TAB PO SCH (09:05)
[2020-05-17] MEDS: ACYCLOVIR 200 MG CAP PO SCH (09:05)
--- NOTE | 2020-05-17 10:21 | NUR ---
INFECTIOUS DISEASE PROGRESS NOTE DR. MARYLOU ACUNA SUBJECTIVE: The patient is seen and evaluated. Discussed with Dr. Acuna. Discussed with the nurse. Uneventful night. REVIEW OF SYSTEMS: No nausea, vomiting, fever, headache, chest pain, shortness of breath, or cough. LABORATORY STUDIES: White count 7.46, hemoglobin 9.8. Recheck BMP is pending. No new CBC available. MICROBIOLOGY: MSSA in the blood on 05/09 with recheck on 05/11 is negative so far. RADIOLOGY STUDIES: No new radiology studies available. OBJECTIVE: VITAL SIGNS: per chart GENERAL: Awake and alert, in no acute distress. CV: S1, S2. no S3, s4 CHEST: Equal expansion. Clear to auscultation. No acute distress. HEENT: Moist. No pallor. No JVD. EXTREMITIES: Weak. ASSESSMENT AND PLAN: 1. MSSA bacteremia. 2. Left lower lobe pneumonia. 3. Debility. 4. Near-complete tear of the right hamstring. 5. Hypertension. on Acyclovir and Vanc -acyclovir for life per her PCP, pt refuses to stop medication Vanc x6 weeks for MSSA bacteremia, allergic to PCN Vancomycin 1gm q12h x6 weeks ABT are arranged can discharge today Marylou Acuna M.D
--- NOTE | 2020-05-17 11:06 | Progress Note ---
DATE: 05/16/2020 Medicine Progress Note This is a late entry note. SUBJECTIVE: The patient was seen early this afternoon. She was doing well. Still pending antibiotics, be arranged by Dr. Elmore's office. PICC line is in place. Vital signs, afebrile, normotensive, respiratory rate is good. Chemistries reviewed, stable. CBC, stable. Microbiology, nothing new. Repeat blood cultures were negative. A 2D echo shows no evidence of any vegetations. PHYSICAL EXAMINATION: GENERAL: No acute distress. Alert and oriented x3. PULMONARY: Clear to auscultation bilaterally. No wheezing, rales, or rhonchi. No crackles are appreciated. CARDIOVASCULAR: Positive S1, S2. No murmurs, rubs, or gallops appreciated. ABDOMEN: Soft, nondistended, nontender to palpation. Bowel sounds present. MUSCULOSKELETAL: Strength is 5/5 throughout. No evidence of any muscle deficits on examination. SKIN: Intact. Warm to touch. Good cap refill. PSYCHIATRIC: Normal affect and mood. EXTREMITIES: No edema. Good range of motion throughout. IMPRESSION: 1. Intractable right hip pain with complete right hamstring tear-improved. 2. Age-indeterminate compression fracture with TLSO brace, much improved. 3. Multiple myeloma, on chemotherapy. 4. Hypertension. 5. Sepsis with methicillin-sensitive Staphylococcus aureus bacteremia. PLAN: At this time, Orthopedics, no further workup. Follow up in 2-3 weeks in our office. Continue with outpatient PT and OT. As per ID, PICC line has been placed. They are arranging cefazolin at the [facility] at Dr. Elmore's office. Once that has been approved, the patient can be discharged. A 2D echo showed no evidence of any vegetations. Lovenox for DVT prophylaxis. Consultants: Orthopedics and Infectious Disease. I discussed the plan of care with the patient and daughter at bedside including nursing staff hopefully discharge soon. MD GAL Krause/CONCEPCION /[id number]
[2020-05-17 12:07] VITALS: BP 164/84
--- NOTE | 2020-05-17 13:25 | NUR ---
Spoke with CATHERINE Carrillo, pt is approved for iv abx thru Dr. Elmore's office. Appointment for 2pm tomorrow. CM printed and gave pt with appointment information. [address] [facility] [address] [place] [address]
[2020-05-17] MEDS ORDERED: SODIUM CHLORIDE 0.9% IV ONE (14:30)
[2020-05-17] MEDS ORDERED: ERTAPENEM IV ONE (14:30)
--- NOTE | 2020-05-17 15:31 | NUR ---
Patient recvd 1g Invanz IV x1 Dose, No Adverse reaction noted, Patient aware about f/up appointment in Dr Elmore's office for IV abt tomorrow 2p, PICC line is intact, not in any distress. waiting for her daughter to pick her
[2020-05-17 16:32] VITALS: BP 139/60
--- NOTE | 2020-05-17 17:31 | NUR ---
Patient discharged Home, Alert with no distress, PICC line is intact, Tele box returned, transported via wheelchair to [facility]
--- NOTE | 2020-05-18 12:26 | Discharge Summary ---
FINAL DISCHARGE DIAGNOSES: 1. Intractable right hip pain with complete hamstring tear-Orthopedics followup in 2-3 weeks in their office, no further workup. Outpatient PT, OT. 2. Age-indeterminate compression fracture with TLSO brace. 3. Multiple myeloma on chemotherapy. 4. Hypertension. 5. Methicillin-susceptible Staph aureus bacteremia-has PICC line, with antibiotics on 05/18/2020, Dr. Elmore's office at 2 p.m. CONSULTANTS: Orthopedics, Infectious Disease, Hematology, Oncology. PHYSICAL EXAMINATION: VITAL SIGNS: Temperature is 98.6, pulse 78, respirations 17, blood pressure LABORATORY DATA: White count 7.4, hemoglobin . Chemistry; sodium 139, potassium 3.5, chloride 110, bicarb 23, anion gap of 9.5, BUN is 15, creatinine 0.56, glucose is 162, calcium is 8.1, BNP 266 . Urinalysis noted. Serology; Coronavirus nondetected. MICROBIOLOGY: Urine cultures are negative. Initial blood cultures 2/2 was MSSA bacteremia. Repeat blood cultures were found to be negative greater than five days. IMAGING STUDIES: The patient had a hip x-ray on admission, it shows no acute fracture or dislocation. Multiple punctate lytic lesions throughout the bones. Lumbar x-ray, T7, T8 compression fracture, indeterminate age. Chronic compression fracture of T9 vertebral body. L4-L5 posterior spinal fusion with grade 2 anterolisthesis of L4 on L5. CT of the hip shows no acute fracture. Multiple punctate lytic lesions throughout the bones. There was some concerns of edema . Lumbar CT age-indeterminate L3 endplate fracture. There is an L2 superior endplate fracture. That is chronic. Degenerative changes noted. Femur x-ray just shows multiple punctate lytic lesions. No findings of acute fracture or dislocation. Humerus x-ray multiple lytic lesions in the right humerus, but no comment of any fracture noted. Tib-fib x-ray, multiple lytic lesions. No acute fracture or dislocation noted. MRI of the femur shows right hamstring origin complete to tear with edema and hemorrhage extending along the right thigh. HOSPITAL COURSE: This is an 79-year-old female with history of multiple myeloma on chemotherapy, came in with complaints of right leg pain acutely that began while she was at home. After further investigation and imaging studies performed, she was found to have a MRI of the right lower extremity that showed a complete tear of her right hamstring. Orthopedics was consulted. Orthopedics has not recommend any surgical intervention at this time. They recommended physical therapy, occupational therapy, and pain control with followup in their office in 2-3 weeks. She did have some evidence of lytic lesions throughout on several imaging studies. She did have some compression fractures noted in the vertebra on imaging studies. Hematology-Oncology was consulted. While in the hospital, she developed a fever. Blood cultures were collected and she was found to have MSSA bacteremia. This prompted ID consultation. She was maintained on broad-spectrum IV antibiotics. A 2D echo showed no evidence of any palpitations. She had a PICC line inserted. Repeat blood cultures were found to be negative. She continued antibiotics and then she was discharged with IV Invanz 1 g x1 before being discharged with pickup of her antibiotics at Dr. Elmore's office, Infectious Disease on 05/18/2020, at 2 p.m. She was educated about picking up her antibiotics on that date. She was doing well with no complaints. Repeat blood cultures were negative. White count was normal. She was afebrile. She was ambulating well with no issues. She was cleared for discharge by all consultants. On day of discharge, vital signs were stable. Labs reviewed and stable. The patient was seen, evaluated and examined thoroughly on the day of discharge. No other complaints. The patient verbalized understanding and agreed to plan of care to follow up accordingly as an outpatient with primary care physician in one week, Infectious Disease physician tomorrow, 05/18/2020 at 2 p.m. to picker box operator her antibiotics for six total weeks of treatment according to ID recommendations, Orthopedics in 2-3 weeks time. MEDICATIONS: See med reconciliation form. DISPOSITION: Home. CONDITION: Stable. DIET: Heart healthy. In the event of any worsening symptoms, the patient was advised to come back to the ED for further evaluation. Discharge summary took greater than 35 minutes. Once again, the patient received Invanz 1 g x1 before being discharged tomorrow and told she is able to picker box operator the antibiotics from Dr. Elmore's office on 05/18/2020, at 2 p.m. to picker box operator cefazolin for six total weeks as per recommendations by Infectious Disease. The patient verbalized understanding and agrees to plan of care. Nursing staff was present throughout the entire conversation where I have discussed this case with the patient at bedside. MD GAL Krause/CONCEPCION /[id number]
== END 2020-05-17 18:46 | disposition home or self-care (01) | DRG 871 ==
LOC: ER 17:19 → ERHOLD 19:34 → MED/SURG3 20:24 → OBSVTOIN 05-09 16:42
PROVIDERS: ADMIT Internal Medicine; ATTEND Internal Medicine
PROC: 02HV33Z Insertion of Infusion Device into Superior Vena Cava, Percutaneous Approach (ICD-10-PCS; principal; 2020-05-15)
DX: A41.01 Sepsis due to Methicillin susceptible Staphylococcus aureus (principal); J15.211 Pneumonia due to Methicillin susceptible Staphylococcus aureus; S76.021A Laceration of muscle, fascia and tendon of right hip, initial encounter; C90.00 Multiple myeloma not having achieved remission; M84.559A Pathological fracture in neoplastic disease, hip, unspecified, initial encounter for fracture; Y92.009 Unspecified place in unspecified non-institutional (private) residence as the place of occurrence of the external cause; Z85.3 Personal history of malignant neoplasm of breast; G89.3 Neoplasm related pain (acute) (chronic); Z20.828 Contact with and (suspected) exposure to other viral communicable diseases
CPT/HCPCS: 36415; 36569; 71045; 71260; 72100; 72131; 72192; 74177; 80048; 80053; 80202; 81001; 82550; 82553; 83880; 84484; 85014; 85018; 85025; 87040; 87071; 87086; 87186; 87205; 93306; 93970; 96361; 97139; 99284; G0378; J1170; J1335; J1650; J1885; J1940; J1956; J2405; J3370; J7030; J7050; J7512; Q9967; U0002